=== PATIENT | female | born 1935 | race Caucasian/White ===

== ENCOUNTER 2017-10-27 10:32 | Emergency (ER) | payer MEDICARE ==
[2017-10-27 10:46] VITALS: BP 155/48
--- NOTE | 2017-11-07 18:05 | UC ---
Hong Sams Angela, scribed for Olivia Mcfarlane DO on 10/27/17 at 1113 . General HPI - HPI Summary HPI Summary: This pt is a 82 y/o female presenting to [facility] c/o plugged ears for a couple of days. She states having decreased hearing secondary to plugged ears. Pt notes her next door neighbor has come in to her house to tell her to lower the volume of her radio. She denies sore throat, cough, rhinorrhea, abd pain, nausea, vomiting, chest pain, SOB. Pt denies recent falls or confusion. PMHx: type [address] 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 Pt is a former smoker, quit at age 49. - History of Current Complaint Chief Complaint: UCEar Stated Complaint: PLUGGED EARS Time Seen by Provider: 10/27/17 10:52 Hx Obtained From: Patient Onset/Duration: Lasting Days, Still Present Timing: Constant Current Severity: Moderate Character: plugged ears, with decreased hearing Associated Signs & Symptoms: Positive: Other - POS: ears plugged, decreased hearing. Negative: Abdominal Pain, Confusion, Cough, Chest Pain, Fever, Headache, Nausea, SOB, Vomiting - Allergy/Home Medications Allergies/Adverse Reactions: Allergies Allergy/AdvReac Type Severity Reaction Status Date / Time Senna Allergy Intermediate Hives Verified 08/18/16 13:55 Sulfa Drugs AdvReac Intermediate Fatigue Verified 08/18/16 13:55 [elomite] Allergy Intermediate Hives Uncoded 07/29/16 12:49 PMH/Surg Hx/FS Hx/Imm Hx Endocrine History: Diabetes - type 2 Respiratory History: COPD Cancer History: Other Other Cancer History: Bone marrow CA - Surgical History Surgical History: Yes Surgery Procedure, Year, and Place: left foot years ago - Family History Known Family History: Positive: Cardiac Disease, Hypertension, Other - CA - Social History Alcohol Use: None Substance Use Type: None Smoking Status (MU): Former Smoker Type: Cigarettes Amount Used/How Often: 1 ppd Length of Time of Smoking/Using Tobacco: 30 years Have You Smoked in the Last Year: No When Did the Patient Quit Smoking/Using Tobacco: 30 years agao - Immunization History Most Recent Influenza Vaccination: 2013 Most Recent Tetanus Shot: UP TO DATE Most Recent Pneumonia Vaccination: 2012 Review of Systems Constitutional: Negative Skin: Negative Eyes: Negative ENT: Other - plugges ears, decreased hearing Respiratory: Negative Cardiovascular: Negative Gastrointestinal: Negative Genitourinary: Negative Motor: Negative Neurovascular: Negative Musculoskeletal: Negative Neurological: Negative Psychological: Negative All Other Systems Reviewed And Are Negative: Yes Physical Exam Triage Information Reviewed: Yes Appearance: Well-Appearing, No Pain Distress, Well-Nourished Vital Signs: Initial Vital Signs Temp 98 F 10/27/17 10:42 Pulse 49 10/27/17 10:42 Resp 16 10/27/17 10:42 BP 155/48 10/27/17 10:42 Pulse Ox 100 10/27/17 10:42 Vital Signs Reviewed: Yes Eyes: Positive: Conjunctiva Clear. Negative: Discharge ENT: Positive: Hearing grossly normal, Other - cerumen impaction in bilateral ears. Negative: Tonsillar swelling, Tonsillar exudate, Trismus, Muffled voice, Hoarse voice Neck exam: Normal Neck: Positive: Supple Respiratory: Positive: Lungs clear, Normal breath sounds, No respiratory distress, No accessory muscle use Cardiovascular: Positive: RRR, No Murmur Musculoskeletal Exam: Normal Neurological: Positive: Alert, Muscle Tone Normal Psychological Exam: Normal Psychological: Positive: Age Appropriate Behavior Skin Exam: Normal, Other - warm, dry Re-Evaluation - Re-Evaluation First Eval Re-Evaluation Time: 11:57 Comment: Pt is able to hear better after cerumen removal by ear irrigation. Course/Dx - Course Course Of Treatment: Medications reviewed this visit. In [facility] course the pt had ear irrigation. After cerumen removal, pt is able to hear better. Pt will be discharged home with follow up from PCP. - Differential Dx - Multi-Symptom Provider Diagnoses: Cerumen Impaction Discharge - Discharge Plan Condition: Stable Disposition: HOME Patient Education Materials: Cerumen Impaction (ED) Referrals: No Primary Care Phys,NOPCP [Primary Care Provider] - Additional Instructions: FOLLOW-UP CARE: You should establish with a private physician for follow-up care. If you are unable to get a timely appointment, or if you are worsening, call us or return for re-evaluation. An additional resource available to assist in finding the appropriate physician for your health care needs is the [facility]ician Referral Center. You may contact them by calling [phone]. The documentation as recorded by the Hong humphreys Angela accurately reflects the service I personally performed and the decisions made by me, Olivia Mcfarlane DO.
== END 2017-10-27 11:59 | disposition home or self-care (01) ==
LOC: UCEAST 10:32
DX: H61.23 Impacted cerumen, bilateral (principal); E11.9 Type 2 diabetes mellitus without complications; J44.9 Chronic obstructive pulmonary disease, unspecified; Z85.830 Personal history of malignant neoplasm of bone; Z88.2 Allergy status to sulfonamides; Z87.891 Personal history of nicotine dependence
CPT/HCPCS: 99213; G0463

== ENCOUNTER 2019-11-07 12:25 | Inpatient (IN) | payer MEDICARE ==
[2019-11-07] MEDS ORDERED: NS 0.9% 1000 ML** 1,000 ML IV ONE (12:47)
--- NOTE | 2019-11-07 13:20 | ED ---
Complex/Multi-Sys Presentation - HPI Summary HPI Summary: Patient is a 84 y/o F presenting to [facility] via EMS with complaints of fall and urinary and fecal incontinence. She is reported to have fallen some time last evening. Patient was found on floor of bathroom this morning by home health aide. Patient does not recall fall and unable to provide history, she is a level 5 caveat secondary to AMS. Patient is noted to have bruises to both shoulders. The patient does deny any pain. Home medications and allergies are reviewed. - History Of Current Complaint Chief Complaint: EDFall Time Seen by Provider: 11/07/19 12:40 Hx Obtained From: Patient Hx From Patient Unobtainable Due To: Altered Mental Status Onset/Duration: Sudden Onset, Still Present Timing: Intermittent, Lasting: - One episode, last night Severity Currently: Mild Severity Initially: Mild Associated Signs And Symptoms: Positive: Confusion, Other - Urinary and fecal incontinence - Allergies/Home Medications Allergies/Adverse Reactions: Allergies Allergy/AdvReac Type Severity Reaction Status Date / Time permethrin [From Elimite] Allergy Intermediate Hives Verified 11/07/19 16:18 senna Allergy Intermediate Hives Verified 12/11/18 09:55 Sulfa (Sulfonamide Allergy Intermediate Fatigue Verified 12/11/18 09:55 Antibiotics) Home Medications: Home Medications Acetaminophen TAB* [Tylenol TAB*] 650 mg PO Q4H PRN 11/07/19 [History Confirmed 11/07/19] Ascorbic Acid TAB* [Vitamin C TAB*] 500 mg PO DAILY 11/07/19 [History Confirmed 11/07/19] Cholecalciferol TAB* [Vitamin D TAB*] 2,000 units PO DAILY 11/07/19 [History Confirmed 11/07/19] Cyanocobalamin TAB* [Vitamin B12 TAB*] 1,000 mcg PO DAILY 11/07/19 [History Confirmed 11/07/19] Dulaglutide (NF) [Trulicity (NF)] 0.75 mg SUBCUT WEEKLY 11/07/19 [History Confirmed 11/07/19] Multivitamins/Minerals TAB* [Theragran/minerals TAB*] 1 tab PO DAILY 11/07/19 [ History Confirmed 11/07/19] Ruxolitinib (NF) [Jakafi (NF)] 10 mg PO BID 11/07/19 [History Confirmed 11/07/19 ] PMH/Surg Hx/FS Hx/Imm Hx Endocrine/Hematology History: Reports: Hx Blood Disorders - BONE MARROW CANCER, Hx Blood Transfusions, Hx Diabetes, Hx Anemia Denies: Hx Bone Marrow Disease, Hx Systemic Lupus Erythematosus, Hx Sickle Cell Disease, Hx Thyroid Disease, Hx Unexplained Bleeding, Other Endocrine/ Hematological Disorders Cardiovascular History: Denies: Hx Hypotension, Hx Hypertension, Hx Pacemaker/ICD, Hx Peripheral Vascular Disease, Hx Rheumatic Fever, Hx Syncope Respiratory History: Reports: Hx Chronic Obstructive Pulmonary Disease (COPD) - NOT DIAGNOSED, SMOKED FOR 30Y4S Denies: Hx Asthma, Hx Chronic Bronchitis, Hx Cystic Fibrosis, Hx Lung Cancer , Hx Pleural Effusion, Hx Pneumonia, Hx Pulmonary Edema, Hx Pulmonary Embolism, Hx Seasonal Allergies, Hx Sleep Apnea GI History: Denies: Hx Cirrhosis, Hx Crohn's Disease, Hx Diverticulosis, Hx Gall Bladder Disease, Hx Gastroesophageal Reflux Disease, Hx Gastrointestinal Bleed, Hx Hiatal Hernia, Hx Irritable Bowel, Hx Jaundice, Hx Obstructive Bowel, Hx Ileostomy, Hx Pyloric Stenosis, Hx Ulcer, Other GI Disorders History: Denies: Hx Acute Renal Failure, Hx Benign Prostatic Hyperplasia, Hx Chronic Renal Failure, Hx Dialysis, Hx Kidney Infection, Hx Kidney Stones, Other Problems/Disorders Musculoskeletal History: Reports: Hx Arthritis Denies: Hx Bursitis, Hx Congenital Bone Abnormalities, Hx Fibromyalgia, Hx Gout, Hx Orthopedic Injury, Hx Osteoporosis, Hx Scoliosis, Hx Tendonitis, Other Musculoskeletal History Sensory History: Reports: Hx Contacts or Glasses - READING Denies: Hx Eye Prosthesis, Hx Glaucoma, Hx Legally Blind, Hx Macular Degeneration, Hx Vision Problem, Hx Deafness, Hx Hearing Aid, Hx Hearing Problem , Other Sensory Impairments Opthamlomology History: Reports: Hx Contacts or Glasses - READING Denies: Hx Eye Prosthesis, Hx Glaucoma, Hx Legally Blind, Hx Macular Degeneration, Hx Vision Problem, Other Sensory Impairments Neurological History: Denies: Hx Dementia, Hx Developmental Delay, Hx Headaches, Hx Migraine, Hx Nerve Disease, Hx Seizures, Hx Spinal Cord Injury, Hx Transient Ischemic Attacks (TIA), Other Neuro Impairments/Disorders Psychiatric History: Reports: Hx Anxiety - SOMETIMES ANXIOUS, NOT DIAGNOSED Denies: Hx Attention Deficit Hyperactivity Disorder, Hx Eating Disorder, Hx Depression, Hx Panic Disorder, Hx Post Traumatic Stress Disorder, Hx Inpatient Treatment, Hx Community Mental Health Tx, Hx Schizophrenia, Hx Bipolar Disorder , Hx Suicide Attempt, Hx of Violent Episodes Against Others, Hx Substance Abuse , Other Psychiatric Issues/Disorders - Cancer History Cancer Type, Location and Year: BONE MARROW CA Hx Hematologic Symptoms: Yes - thrombocytosis, sees Dr. Felix, takes Anagrelide - Surgical History Surgery Procedure, Year, and Place: left foot years ago Hx Anesthesia Reactions: No Infectious Disease History: No Infectious Disease History: Denies: Hx Clostridium Difficile, Hx Hepatitis, Hx Human Immunodeficiency Virus (HIV), Hx of Known/Suspected MRSA, Hx Shingles, Hx Tuberculosis, Hx Known/ Suspected VRE, Hx Known/Suspected VRSA, History Other Infectious Disease, Traveled Outside the [place] in Last 30 Days - Family History Known Family History: Positive: Cardiac Disease, Hypertension, Other - CA - Social History Alcohol Use: None Substance Use Type: Reports: None Smoking Status (MU): Former Smoker Type: Cigarettes Amount Used/How Often: 1 ppd Length of Time of Smoking/Using Tobacco: 30 years Have You Smoked in the Last Year: No Review of Systems - ROS Summary Review of Systems Summary: THIS IS A LEVEL 5 CAVEAT DUE TO AMS Positive: incontinence - fecal and void All Other Systems Reviewed And Are Negative: No Physical Exam - Summary Physical Exam Summary: THIS IS A LEVEL 5 CAVEAT VITAL SIGNS: Reviewed. GENERAL: Patient is a well-developed and nourished female who is lying comfortable in the stretcher. Patient is not in any acute respiratory distress. HEAD AND FACE: No signs of trauma. No ecchymosis, hematomas or skull depressions. No sinus tenderness. EYES: PERRLA, EOMI x 2, No injected conjunctiva, no nystagmus. EARS: Hearing grossly intact. Ear canals and tympanic membranes are within normal limits. MOUTH: Oropharynx within normal limits. NECK: Supple, trachea is midline, no adenopathy, no JVD, no carotid bruit, no c- spine tenderness, neck with full ROM. CHEST: Symmetric, no tenderness at palpation. LUNGS: Clear to auscultation bilaterally. No wheezing or crackles. CVS: Regular rate and rhythm, S1 and S2 present, no murmurs or gallops appreciated. ABDOMEN: Soft, non-tender. No signs of distention. No rebound, no guarding, and no masses palpated. Bowel sounds are normal. Incontinence of feces and urine. EXTREMITIES: FROM in all major joints, no edema, no cyanosis or clubbing. Ecchymosis to shoulders bilaterally. NEURO: Alert. Disoriented. No acute neurological deficits. Speech is normal and follows commands. SKIN: Dry and warm. Triage Information Reviewed: Yes Vital Signs On Initial Exam: Initial Vitals Temp Pulse Resp BP Pulse Ox 99 F 99 21 153/52 95 11/07/19 12:29 11/07/19 12:29 11/07/19 12:29 11/07/19 12:29 11/07/19 12:29 Vital Signs Reviewed: Yes Completion Of Physical Exam Limited Due To: Level 5 Procedures - Sedation Patient Received Moderate/Deep Sedation with Procedure: No Diagnostics - Vital Signs Vital Signs Temp Pulse Resp BP Pulse Ox 11/07/19 12:40 96 20 98 11/07/19 12:39 98 20 153/52 99 11/07/19 12:29 99 F 99 21 153/52 95 - Laboratory Result Diagrams: 11/08/19 09:06 11/08/19 09:06 Lab Statement: Any lab studies that have been ordered have been reviewed, and results considered in the medical decision making process. - Radiology CXR Radiology Interpretation Completed By: Radiologist Summary of Radiographic Findings: CXR IMPRESSION: HYPERINFLATION. NO ACTIVE CARDIOPULMONARY DISEASE. An ED physician has reviewed this report. - CT Brain CT CT Interpretation Completed By: Radiologist Summary of CT Findings: IMPRESSION: 1. No acute intracranial abnormality by CT. 2. Mild chronic small vessel ischemic disease is likely. 3. Moderate cerebral volume loss. An ED physician has reviewed this report. - EKG 1351 Cardiac Rate: NL - 92 bpm EKG Rhythm: Sinus Rhythm ST Segment: Normal EKG Comparison: No Significant Change Summary of EKG Findings: EKG at 1351 shows normal sinus rhythm at 92 bpm. No STEMI. Normal axis. No change since 11/04/14. Dr. Alexander reviewed and interpreted this EKG. Complex Multi-Symp Course/Dx Assessment/Plan: Patient is an 84 y/o F presenting to [facility] via EMS with complaints of fall and urinary and fecal incontinence. She is reported to have fallen some time last evening. Patient was found on the floor of the bathroom this morning by home health aide. Patient does not recall fall and unable to provide history, she is a level 5 caveat secondary to AMS. Patient is noted to have bruises to both shoulders. The patient denied any pain. Home medications and allergies are reviewed. PE: bruising to shoulders, bilaterally; alert but disoriented, incontinent of feces and urine, level 5 caveat secondary to AMS. In the ED course the patient was placed in a pvc monitor, IV access was obtained, IV fluids started. Head CT impression: No acute interconnected abnormality. Mild chronic small vessel ischemic disease. Moderate cerebral volume loss. Blood work shows wbcs of 40.9 which is Baseline, hemoglobin 9, hematocrit 28 and crit is 178. Urinalysis positive for UTI. Other results were within normal limits except for glucose of 177 and troponin 0.20. Patient was given Rocephin for the UTI. Chest x-ray impression: Hyperinflation no active cardiopulmonary disease. I discussed the case with and Dr. Prince from the hospitalist services who accepted the patient for admission. The patient is hemodynamically stable. - Diagnoses Provider Diagnoses: UTI (urinary tract infection), Acute alteration in mental status - Physician Notifications Discussed Care Of Patient With: Tosin Prince - Hospitalist Time Discussed With Above Provider: 15:00 Instructed by Provider To: Admit As Inpatient - Spoke to Dr. Prince at 1500. She accepts patient for admission. Admit/Transition Orders Completed By ED Provider: Yes Discharge ED - Sign-Out/Discharge Documenting (check all that apply): Patient Departure - admit All imaging exams completed and their final reports reviewed: Yes - Discharge Plan Condition: Stable Disposition: ADMITTED TO [facility] - Billing Disposition and Condition Condition: STABLE Disposition: Admitted to [facility] - Attestation Statements Document Initiated by Jaimeibe: Yes Documenting Scribe: MILANA STROUD Provider For Whom Joaquin is Documenting (Include Credential): MISHA ALEXANDER MD Scribe Attestation: Latrell, MILANA STROUD, scribed for MISHA ALEXANDER MD on at 1047. Scribe Documentation Reviewed: Yes Provider Attestation: The documentation as recorded by the scribe, MILANA STROUD accurately reflects the service I personally performed and the decisions made by me, MISHA ALEXANDER MD Status of Scribe Document: Viewed
[2019-11-07 13:24] LABS: Urine Appearance Cloudy; Urine Bilirubin Negative (Negative); Urine Blood 2+ (Negative); Urine Color Amber; Urine Glucose Negative (Negative); Urine Ketones Trace (Negative); Urine Nitrite Positive (Negative); Urine Protein 2+(100 mg/dL) (Negative); Urine Specific Gravity 1.017 (1.010-1.030); Urine Urobilinogen Negative (Negative)
[2019-11-07] MEDS ORDERED: cefTRIAXone(*) 1 GM in NS 0.9% 50 ML* 50 ML IVPB ONE (13:28)
[2019-11-07 13:35] LABS: Urine Bacteria 2+ (Absent); Urine Red Blood Cell 3+(>10/hpf) (Absent); Urine Squamous Epithelial Cell Present (Absent); Urine White Blood Cell 3+(>20/hpf) (Absent)
[2019-11-07 13:43] LABS: INR 1.16 (0.82-1.09)
[2019-11-07 13:45] LABS: Hematocrit 28 % (35-47); Mean Corpuscular HGB Conc 32 g/dL (31-36); Mean Corpuscular Hemoglobin 31 pg (27-31); Mean Corpuscular Volume 96 fL (80-97); Mean Platelet Volume 7.9 fL (7.4-10.4); Platelet Count 178 10^3/uL (150-450); Red Blood Count 2.91 10^6 /uL (3.70-4.87); Red Cell Distribution Width 25 % (10-15); White Blood Count 40.9 10^3/uL (3.5-10.8)
[2019-11-07 14:22] LABS: ALT 16 U/L (7-52); AST 27 U/L (13-39); Albumin 3.8 g/dL (3.2-5.2); Albumin/Globulin Ratio 1.4 (1-3); Alkaline Phosphatase 92 U/L (34-104); Anion Gap 7 mmol/L (2-11); BUN/Creatinine Ratio 20.5 (8-20); Blood Urea Nitrogen 15 mg/dL (6-24); CO2 Carbon Dioxide 28 mmol/L (22-32); Calcium 8.6 mg/dL (8.6-10.3); Chloride 103 mmol/L (101-111); Creatine Kinase 118 U/L (10-223); EGFR African American 91.7 (>60); EGFR Non-African American 75.8 (>60); Globulin 2.7 g/dL (2-4); Glucose 177 mg/dL (70-100); Magnesium 1.9 mg/dL (1.9-2.7); Potassium 3.6 mmol/L (3.5-5.0); Sodium 138 mmol/L (135-145); Total Protein 6.5 g/dL (6.4-8.9)
[2019-11-07 14:35] LABS: Microcytosis 2+; Polychromasia 1+
[2019-11-07 14:37] LABS: ABS Basophils 0.2 10^3/ul (0-0.2); ABS Eosinophils 1.3 10^3/ul (0-0.6); ABS Lymphocytes 3.7 10^3/ul (1.0-4.8); ABS Monocytes 1.6 10^3/ul (0-0.8); ABS Neutrophils 33.9 10^3/ul (1.5-7.7); ABS Nucleated RBC 1.2 10^3/ul; Eosinophil % 3.3 %; Lymphocyte % 9.1 %
[2019-11-07 14:39] LABS: TSH (Thyroid Stimulating Horm) 1.77 mcIU/mL (0.34-5.60)
[2019-11-07] MEDS ORDERED: Aspirin 81 mg CHEW TAB* 81 MG TAB.CHEW PO ONE (14:39)
[2019-11-07 14:51] LABS: Acetaminophen < 15 mcg/mL; Alcohol < 10 mg/dL (<10); Salicylate < 2.50 mg/dL (<30)
[2019-11-07] MEDS ORDERED: Dextrose 50% VIAL 50 ml IV PUSH PRN (16:33)
[2019-11-07] MEDS ORDERED: Dulaglutide (NF) 0.75 MG/0.5 ML SYRINGE SUBCUT SCH (17:00)
[2019-11-07] MEDS: NS 0.9% 1000 ML** 1,000 ML IV SCH (18:39)
--- NOTE | 2019-11-07 19:27 | HP ---
CC: Dr. Felix; Dr. Sal * HISTORY AND PHYSICAL: DATE OF ADMISSION: 11/07/19 PRIMARY CARE PROVIDER: Dr. Felix OTHER PROVIDER: Dr. Sal. ATTENDING PHYSICIAN: Tosin Prince MD * (dictated by GEO Castillo ). CHIEF COMPLAINT: 1. Fall. 2. Fecal and urinary incontinence. HISTORY OF PRESENT ILLNESS: Ms. Mao is an 84-year-old female with a past medical history of myelofibrosis, diabetes, COPD, who presented to the ER today via ambulance after being found down at [facility]. Her aide, Kristin, notes that she found the patient down on the floor in her bathroom and she had noted incontinence of feces and most likely incontinence of urine. The patient has no recollection of this. The fall was unwitnessed. The patient is unsure if she hit her head or lost consciousness. She does not recall the fall and therefore is unable to say whether it was mechanical or not. It is important to note that the patient was recently diagnosed with a UTI, treated with approximately 1 month of cephalexin 500 mg t.i.d. Antibiotics have been completed for approximately 1 week. She follows with Dr. Sal, who called in a new antibiotic of Macrobid for the patient as well as Premarin vaginal cream. The patient has not picked these up yet, but had planned to today. The patient complains of low back pain, but denies flank pain, dysuria, urgency, retention, or frequency. In fact, she states that she has had decreased output. She does complain of occasional dizziness and noted that she had diarrhea this morning. In the ER, the patient received a full workup including laboratory data revealing a leukocytosis, anemia. She had a troponin of 0.20. Creatine kinase was negative as was TSH. There is no lactic acidosis. A urinalysis was performed and revealed 3+ LE, positive nitrites, 2+ bacteria. Brain CT showed no acute abnormalities. Chest x-ray, no active cardiopulmonary disease. EKG shows T-wave inversion in V1 without ST elevation or depression. In the ER, the patient was given aspirin 81 mg, ceftriaxone 1 g, 1 L of normal saline. The hospitalist team was asked to evaluate the patient for admission. PAST MEDICAL HISTORY: 1. Myelofibrosis, on ruxolitinib, follows with Dr. Felix. 2. Diabetes mellitus. 3. COPD. 4. Arthritis. PAST SURGICAL HISTORY: Left foot; bilateral cataracts. HOME MEDICATIONS: 1. Acetaminophen 650 mg p.o. q.4 hours p.r.n. 2. Cyanocobalamin 1000 mcg p.o. daily. 3. Ascorbic acid 500 mg p.o. daily. 4. Ruxolitinib 10 mg p.o. b.i.d. 5. Dulaglutide 0.75 mg subcu weekly. 6. Multivitamin/minerals 1 tab p.o. daily. 7. Cholecalciferol 2000 units p.o. daily. DRUG ALLERGIES: SENNA, SULFA, ELIMITE. FAMILY HISTORY: Mother during childbirth. Father in his 80s, unsure cause of . The patient is unable to recall any further family history. SOCIAL HISTORY: The patient is a former smoker. She quit 30 years ago. Prior to that, she smoked for 30 pack years. She does not use alcohol. She is retired from nursing. She lives at [facility]. She is not . She does not have any children. She lives at home alone with her cat. She has declined to appoint a surrogate decision maker at this time. REVIEW OF SYSTEMS: A 14-point review of systems has been performed and all the pertinent positives and negatives are in the HPI. All other systems are negative. PHYSICAL EXAMINATION GENERAL: Ms. Mao is a well-developed, well-nourished, mildly disheveled, average weight elderly white woman who is sitting up in bed. She is pleasant, cooperative, and mildly confused. She appears to be in no acute distress. HEENT: Normocephalic, atraumatic. PERRL. EOMI. Nonicteric sclerae. Hearing is grossly intact. Oral mucous membranes are moist. There are no lesions. Poor dentition. Pharynx is clear. Tongue is at midline. Palate elevates symmetrically. PULMONARY: Symmetrical chest expansion without use of accessory muscles. Clear to auscultation bilaterally without rhonchi, wheeze, or rales. CARDIOVASCULAR: Mildly tachycardic. Regular rhythm. S1, S2 present without murmurs, rubs, clicks, or gallops. There is no JVD. There is no peripheral edema. ABDOMEN: Flat. Bowel sounds in all quadrants. Soft, mildly tender to palpation at the suprapubic area. No CVA tenderness. MUSCULOSKELETAL: Painless ROM. NEURO: The patient is awake. She is alert and oriented to person and place, unsure of date. Cranial nerves II through XII are grossly intact. Motor strength 5/5 bilaterally in upper and lower extremities. Broadband Installer strength is equal. DIAGNOSTIC STUDIES/LAB DATA: WBC 40.9, hemoglobin 9, hematocrit 28, RDW 25. Lactic 1.4. Creatine kinase 118, troponin 0.20. TSH 1.77. Urinalysis; 3+ LE, 2+ bacteria, positive nitrites. Brain CT, impression: No acute intracranial abnormality by CT. Mild chronic small vessel ischemic disease is likely. Moderate cerebral volume loss. Chest x-ray, impression: Hyperinflation. No active cardiopulmonary disease. ASSESSMENT AND PLAN: Ms. Mao is an 84-year-old female with a past medical history of myelofibrosis, chronic obstructive pulmonary disease, diabetes, who presented to the ER today after a fall and was found to meet sepsis criteria with probable urinary tract infection. The patient will be admitted for: 1. Sepsis. The patient has leukocytosis (although this appears chronic), tachycardia, tachypnea. Lactic acid is within normal limits. Suspected source is urinary. She has been treated with cephalexin x1 month and has been off this medication for 1 week. She follows with Dr. Sal. We will get a records request. It looks like she was prescribed Macrobid, which she had planned on starting soon, but has yet to pick it up from the pharmacy. She has received 1 dose of ceftriaxone. She will be continued on ceftriaxone. She does have a history of urine culture positive for Escherichia coli this month and it was susceptible to ceftriaxone. We will await urine cultures. Blood culture was not done due to ceftriaxone being administered prior to obtaining blood cultures. 2. Fall. The patient sustained a fall, which she does not remember. She is unsure if she lost consciousness, hit her head, or sustained any other injuries. Brain CT was negative. The patient complains of back pain. We will check lumbar x- ray. Creatine kinase was obtained and is within normal limits. It is likely that her fall was due to altered mental status likely from urinary tract infection. PT and OT have been ordered. 3. Elevated troponin. The patient has troponin of 0.20. EKG shows T-wave inversion in V1 without ST elevation or depression. I suspect that the patient' s elevated troponin is related to demand ischemia. She denies chest pain. We will continue to trend troponins and monitor for further intervention. 4. Myelofibrosis. Continue home medication, ruxolitinib. 5. Diabetes mellitus. The patient has been placed on fingersticks a.c. and lispro sliding scale. Her dulaglutide has been held. 6. Chronic obstructive pulmonary disease. The patient has a reported history of chronic obstructive pulmonary disease, but has not been formally diagnosed. She is currently not on any home inhalers. She does not appear to be in an exacerbation at this time. 7. DVT prophylaxis. According to DVT Risk Assessment, the patient scores 3, placing her at high risk. She has been started on enoxaparin. 8. Code status. DNR. TIME SPENT: Approximately 60 minutes was spent on this admission, greater than half that time was spent [id number] with the patient obtaining history, performing physical, and reviewing the plan of care. The case has been reviewed with my attending, Dr. Prince, who is in agreement with the plan of care. GEO CASTILLO [id number]/[facility] #: [id number]
[2019-11-07 20:08] LABS: Troponin I 0.19 ng/mL (<0.03)
[2019-11-07] MEDS: RUXOLITINIB 10 MG PO SCH (22:56)
[2019-11-07] MEDS: Enoxaparin(*) 40 MG/0.4 ML SYR SUBCUT SCH (22:57)
[2019-11-08] MEDS: Insulin LISPRO* 1 UNITS UNIT SUBCUT SCH ×3 (08:41→16:43)
[2019-11-08] MEDS: Cyanocobalamin TAB* 500 MCG PO SCH (08:41)
[2019-11-08] MEDS: Multivitamins/Minerals TAB PO SCH (08:41)
[2019-11-08] MEDS: Ascorbic Acid TAB* 500 MG PO SCH (08:41)
[2019-11-08] MEDS: Cholecalciferol TAB* 1000 UNITS PO SCH (08:41)
[2019-11-08] MEDS: RUXOLITINIB 10 MG PO SCH ×2 (08:42→21:37)
[2019-11-08] MEDS: NS 0.9% 1000 ML** 1,000 ML IV SCH (08:47)
--- NOTE | 2019-11-08 09:10 | PN ---
Subjective Date of Service: 11/08/19 Interval History: Ms. Mao is feeling fine this morning. She is not sure why she is in the hospital and does not remember any events from yesterday. She does remember taking antibiotics recently for a UTI. Denies CP, SOB, N/V. Nursing reports HTN, hypoxia. Family History: Unchanged from Admission Social History: Unchanged from Admission Past Medical History: Unchanged from Admission Objective Active Medications: Acetaminophen (Tylenol Tab*) 650 mg PO Q4H PRN mild to moderate pain Ascorbic Acid (Vitamin C Tab*) 500 mg PO DAILY [facility] Cholecalciferol (Vitamin D Tab*) 2,000 units PO DAILY [facility] Cyanocobalamin (Vitamin B12 Tab*) 1,000 mcg PO DAILY [facility] Dextrose (Dextrose 50% Vial 50 Ml*) 25 ml IV PUSH .FOR FS < 60 - SS PRN FS < 60 Enoxaparin Sodium (Lovenox(*)) 40 mg SUBCUT Q24H [facility] Sodium Chloride (Ns 0.9% 1000 Ml) 1,000 mls @ 100 mls/hr IV PER RATE [facility] Ceftriaxone Sodium 1 gm/ (Sodium Chloride) 50 mls @ 100 mls/hr IVPB Q24H [facility] Insulin Human Lispro (Humalog*) 0 units SUBCUT AC [facility]; Protocol Multivitamins/Minerals (Theragran/Minerals Tab*) 1 tab PO DAILY [facility] Ruxolitinib (Jakafi (Nf)) 10 mg PO BID [facility] Vital Signs - 8 hr 11/08/19 11/08/19 03:16 07:15 Temperature 97.4 F 99.4 F Pulse Rate 108 118 Respiratory 24 22 Rate Blood Pressure 146/54 185/61 (mmHg) O2 Sat by Pulse 79 90 Oximetry Oxygen Devices in Use Now: None Appearance: Elderly female sitting in bed in NAD Ears/Nose/Mouth/Throat: Mucous Membranes Moist Neck: NL Appearance and Movements; NL JVP, Trachea Midline Respiratory: Symmetrical Chest Expansion and Respiratory Effort, Clear to Auscultation Cardiovascular: NL Sounds; No Murmurs; No JVD, RRR Abdominal: NL Sounds; No Tenderness; No Distention Extremities: No Edema Neurological: - - Alert, oriented to self and place Lines/Tubes/Other Access: Clean, Dry and Intact Peripheral IV Nutrition: Taking PO's Result Diagrams: 11/07/19 13:21 12/11/19 13:21 Assess/Plan/Problems-Billing Assessment: Ms. Mao is an 84 yo F with PMH of COPD, myelofibrosis, DM2, recurrent UTI; who presented to the ED after being found on the ground and was found to be meeting sepsis criteria, likely secondary to UTI. - Patient Problems (1) UTI (urinary tract infection) Comment: - History of recurrent UTI (4 this year in our system), all pansensitive E. coli - Completed 1 month of cephalexin 1 week ago - Follows with Dr. Sal - Urine culture from 11/02/19 growing E. coli - Pending urine culture from admission - Continue ceftriaxone (2) Sepsis Comment: - Met criteria on admission with tachycardia, tachypnea; source is suspected to be UTI - Leukocytosis is chronic - Blood cultures pending - Plan as above (3) Fall Comment: - Found down on the floor at home - Unknown cause, but low suspicion for syncope - Check echo - PT/OT, may need ARETHA (4) Elevated troponin Code(s): R79.89 - OTHER SPECIFIED ABNORMAL FINDINGS OF BLOOD CHEMISTRY Comment : - No CP or anginal equivalent - EKG on admission showing T wave inversion in V1, but no other ST changes - Suspect demand ischemia - Recheck trop this morning (5) Myelofibrosis Code(s): D75.81 - MYELOFIBROSIS Comment: - With chronic leukocytosis - Follows with Dr. Felix - Continue ruxolitinab (6) Diabetes mellitus, type 2 Comment: - A1c pending - Continue Lispro SS (7) COPD (chronic obstructive pulmonary disease) Code(s): J44.9 - CHRONIC OBSTRUCTIVE PULMONARY DISEASE, UNSPECIFIED Comment: - Not in exacerbation - No formal diagnosis, but CXR does show hyperinflation - No on home medication (8) DVT prophylaxis Comment: - Lovenox (9) DNR (do not resuscitate) Comment: Status and Disposition: Inpatient. Anticipate d/c home vs ARETHA when medically stable, likely 1-2 more days. Attending: Lidia Garcia
[2019-11-08 09:34] LABS: Hematocrit 29 % (35-47); Hemoglobin 9.3 g/dL (12.0-16.0); Mean Corpuscular HGB Conc 32 g/dL (31-36); Mean Corpuscular Hemoglobin 31 pg (27-31); Mean Corpuscular Volume 96 fL (80-97); Mean Platelet Volume 8.6 fL (7.4-10.4); Platelet Count 205 10^3/uL (150-450); Red Blood Count 3.03 10^6 /uL (3.70-4.87); Red Cell Distribution Width 26 % (10-15); White Blood Count 52.7 10^3/uL (3.5-10.8)
[2019-11-08 09:39] LABS: Anion Gap 11 mmol/L (2-11); BUN/Creatinine Ratio 24.6 (8-20); Blood Urea Nitrogen 15 mg/dL (6-24); CO2 Carbon Dioxide 22 mmol/L (22-32); Calcium 8.8 mg/dL (8.6-10.3); Chloride 104 mmol/L (101-111); EGFR African American 112.8 (>60); EGFR Non-African American 93.2 (>60); Glucose 217 mg/dL (70-100); Potassium 3.6 mmol/L (3.5-5.0); Sodium 137 mmol/L (135-145)
[2019-11-08 09:49] LABS: Troponin I 0.56 ng/mL (<0.03)
--- NOTE | 2019-11-08 09:57 | PN ---
Progress Note - Progress Note Date of Service: 11/08/19 SOAP: Subjective: [She is feeling ok today, she is less responsive and conversational then usual. Does not remember being sick at home. Denies pain. Followed primary care through [place]. 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 Has been stable on therapy with persistent anemia and leukocytosis, low level of peripheral blasts. She has also had progressive dementia over past 2 years. Acetaminophen (Tylenol Tab*) 650 mg PO Q4H PRN PRN Reason: mild to moderate pain Ascorbic Acid (Vitamin C Tab*) 500 mg PO DAILY [facility] Last Admin: 11/08/19 08:41 Dose: 500 mg Aspirin (Aspirin 81 Mg Chew Tab*) 81 mg PO DAILY [facility] Cholecalciferol (Vitamin D Tab*) 2,000 units PO DAILY [facility] Last Admin: 11/08/19 08:41 Dose: 2,000 units Cyanocobalamin (Vitamin B12 Tab*) 1,000 mcg PO DAILY [facility] Last Admin: 11/08/19 08:41 Dose: 1,000 mcg Dextrose (Dextrose 50% Vial 50 Ml*) 25 ml IV PUSH .FOR FS < 60 - SS PRN PRN Reason: FS < 60 Enoxaparin Sodium (Lovenox(*)) 40 mg SUBCUT Q24H [facility] Last Admin: 11/07/19 22:57 Dose: 40 mg Sodium Chloride (Ns 0.9% 1000 Ml) 1,000 mls @ 100 mls/hr IV PER RATE [facility] Stop: 11/09/19 02:14 Last Admin: 11/08/19 08:47 Dose: 100 mls/hr Ceftriaxone Sodium 1 gm/ (Sodium Chloride) 50 mls @ 100 mls/hr IVPB Q24H [facility] Insulin Human Lispro (Humalog*) 0 units SUBCUT AC [facility]; Protocol Last Admin: 11/08/19 08:41 Dose: 2 unit Multivitamins/Minerals (Theragran/Minerals Tab*) 1 tab PO DAILY [facility] Last Admin: 11/08/19 08:41 Dose: 1 tab Ruxolitinib (Jakafi (Nf)) 10 mg PO BID [facility] Last Admin: 11/08/19 08:42 Dose: Not Given Objective: [] Vital Signs Temp Pulse Resp BP Pulse Ox 99.4 F 118 22 185/61 90 11/08/19 07:15 11/08/19 07:15 11/08/19 08:00 11/08/19 07:15 11/08/19 07:15 HEENT: OM moist, pale, no thrush dec BS, CTA RRR S1S2 Abd + spleen, NT ND Ext No C/C/E Assessment: []84 year old female with long standing ET, Rx Ruxolitinib and has bee stable. Blood counts on admission c/w baseline. Admission with UTI and decompensation of long standing dementia. Plan: []1. Continue Ruxolitinib - transfuse Hgb < 8.0 2. Rx UTI, she has mild immunocompromise. 3. Dementia decompensation second to sepsis. 3. May need placement, increased support from current assisted living.
[2019-11-08 10:00] LABS: Polychromasia 1+
[2019-11-08 10:02] LABS: ABS Basophils 0.2 10^3/ul (0-0.2); ABS Lymphocytes 3.6 10^3/ul (1.0-4.8); ABS Monocytes 2.7 10^3/ul (0-0.8); ABS Neutrophils 45.1 10^3/ul (1.5-7.7); ABS Nucleated RBC 1.1 10^3/ul; Eosinophil % 1.9 %; Lymphocyte % 6.8 %
[2019-11-08] MEDS: Aspirin 81 mg CHEW TAB* 81 MG TAB.CHEW PO SCH (10:32)
[2019-11-08] MEDS: cefTRIAXone(*) 1 GM in NS 0.9% 50 ML* 50 ML IVPB SCH (13:44)
[2019-11-08 13:49] LABS: Troponin I 0.64 ng/mL (<0.03)
--- NOTE | 2019-11-08 13:53 | ECHO ---
*[facility]* [place] [address] Fax #: [phone] Transthoracic Echocardiogram Patient: Alejandra Mao : 1935 Study Date: 11/08/2019 Age: 84 Gender: F HR: 104 bpm Height: 66 in /167.6 cm BSA: 1.77 m^2 Weight: 146.7 lb /66.7 kg BMI: 23.7 kg/m^2 *Outcome Analyst: * Breana Louie [facility] *Referring Physician: * Mis Millard *Reading Physician: * William Gamboa MD Indications: Syncope. History: Essential thrombocytosis. Chronic obstructive pulmonary disease. Risk factors: Former tobacco use. Diabetes mellitus. Conclusions Summary: - Left ventricle: The cavity size is normal. Wall thickness is normal. Systolic function is vigorous. The estimated ejection fraction is 65-70%. Doppler parameters are consistent with abnormal left ventricular relaxation (grade 1 diastolic dysfunction). - Left atrium: The atrium is mildly dilated. - Mitral valve: The findings are consistent with mild stenosis. There is trace to mild regurgitation. The peak E-wave velocity is 1.53 m/sec. The mean diastolic gradient is 4.5 mm Hg. The valve area is 2.8 cm^2. The valve area by pressure half-time is 2.0 cm^2. - No previous echocardiogram available. Study data: Transthoracic echocardiogram. Procedure: Transthoracic echocardiography was performed. Image quality was fair. The study was technically limited due to restricted patient mobility. Complete 2D, spectral Doppler, and color flow Doppler. Location: Bedside. Patient status: Inpatient. Patient room number: 401. Rhythm: Tachycardia. Findings Left ventricle: The cavity size is normal. Wall thickness is normal. Systolic function is vigorous. The estimated ejection fraction is 65-70%. Wall motion is normal; there are no regional wall motion abnormalities. Doppler parameters are consistent with abnormal left ventricular relaxation (grade 1 diastolic dysfunction). Right ventricle: The cavity size is mildly dilated. Systolic function is low normal. Left atrium: The atrium is mildly dilated. Right atrium: The atrium is at the upper limits of normal in size. Mitral valve: The Mitral valve annulus appears mildly calcified. The leaflets are mildly thickened. Moderately calcified posterior annulus. The findings are consistent with mild stenosis. There is trace to mild regurgitation. Aortic valve: The valve is trileaflet. The leaflets are mildly thickened. There is no evidence of stenosis. There is no significant regurgitation. Tricuspid valve: The leaflets are normal thickness. There is no evidence of stenosis. There is trace regurgitation. Pulmonic valve: The leaflets are normal thickness. There is no evidence of stenosis. There is trace regurgitation. Aorta: Aortic root: The aortic root is appears normal. Ascending aorta: The ascending aorta is appears normal. Aortic arch: The aortic arch is appears normal. Pericardium: There is no significant pericardial effusion. There is a left pleural effusion. Pulmonary arteries: The main pulmonary artery is normal-sized. Systolic pressure can not be accurately estimated. Systemic veins: Inferior vena cava: The vessel is normal in size. There is (>= 50%) respiratory change in the IVC dimension. Measurements Left ventricle Value Ref Aortic valve continued Value Ref MINOR, LAX 3.9 cm 3.8 - Peak v, S 1.7 m/sec ---- 5.2 VTI, S 35.0 cm ---- ESD, LAX 2.9 cm 2.2 - Mean grad, S 6.3 mm Hg ---- 3.5 Peak grad, S 12.0 mm Hg ---- FS, LAX (L) 25 % 27 - 45 LVOT/AV, VTI ratio 0.74 ---- PW, ED, LAX 0.9 cm 0.6 - AREN, VTI 2.35 cm^2 ---- 0.9 AREN, Vmax 2.35 cm^2 ---- FS (L) 25 % 27 - 45 PW, ED 0.9 cm 0.6 - Mitral valve Value Ref 0.9 Peak E 1.53 m/sec ---- Peak A 1.82 m/sec ---- LVOT Value Ref VTI leaflet coapt 31.0 cm ---- Diam, S 2.01 cm -------- Decel time 175 ms ---- Area 3.2 cm^2 -------- PHT 108 ms ---- Peak yesica, S 1.26 m/sec -------- Mean grad, D 4.5 mm Hg ---- VTI, S 26.1 cm -------- Peak grad, D 10.3 mm Hg ---- Peak grad, S 6 mm Hg -------- Peak E/A ratio 0.84 ---- Mean grad, S 4 mm Hg -------- MVA 2.8 cm^2 ---- MVA, PHT 2.0 cm^2 ---- Ventricular septum Value Ref IVS, ED 0.9 cm 0.6 - Pulmonic valve Value Ref 0.9 Peak v, S 1.17 m/sec ---- Peak grad, S 5.5 mm Hg ---- Right ventricle Value Ref MINOR, LAX 2.9 cm -------- Aortic root Value Ref MINOR minor ax, A4C (H) 3.8 cm 1.9 - Root diam 2.7 cm <4.0 mid 3.5 Ascending aorta Value Ref Left atrium Value Ref AAo AP diam, S 2.7 cm ---- LA ID 3.7 cm -------- ML dim, A4C 4.3 cm -------- Aortic arch Value Ref SI dim, A4C 6.2 cm -------- Arch diam 2.0 cm ---- Vol, ES, 2-p 71 ml -------- Vol/bsa, ES, 2-p (H) 40 ml/m^2 16 - 34 Inferior vena cava Value Ref Diam 1.8 cm ---- Right atrium Value Ref SI dim, ES 5.2 cm 3.4 - 5.3 ML dim, ES, A4C 3.9 cm 2.6 - 4.4 SI dim, ES, A4C 5.2 cm 3.4 - 5.3 Aortic valve Value Ref Ashley diam, S (L) 1.8 cm 1.9 - 2.7 Legend: (L) and (H) junior values outside specified reference range. Prepared and electronically signed by William Gamboa MD 11/08/2019 13:52
[2019-11-08 15:58] LABS: Troponin I 0.42 ng/mL (<0.03)
[2019-11-08] MEDS: Enoxaparin(*) 40 MG/0.4 ML SYR SUBCUT SCH (16:50)
[2019-11-08] MEDS ORDERED: hydrALAZINE IV* 20 MG/ML VIAL IV SLOW PU ONE (21:12)
[2019-11-09] MEDS ORDERED: hydrALAZINE IV* 20 MG/ML VIAL IV SLOW PU PRN (00:25)
[2019-11-09 05:40] LABS: Hematocrit 23 % (35-47); Hemoglobin 7.7 g/dL (12.0-16.0); Mean Corpuscular HGB Conc 33 g/dL (31-36); Mean Corpuscular Hemoglobin 31 pg (27-31); Mean Corpuscular Volume 95 fL (80-97); Mean Platelet Volume 8.1 fL (7.4-10.4); Platelet Count 188 10^3/uL (150-450); Red Blood Count 2.46 10^6 /uL (3.70-4.87); Red Cell Distribution Width 27 % (10-15); White Blood Count 43.5 10^3/uL (3.5-10.8)
[2019-11-09 06:59] LABS: Polychromasia 1+
[2019-11-09 07:01] LABS: ABS Basophils 1.7 10^3/ul (0-0.2); ABS Eosinophils 1.2 10^3/ul (0-0.6); ABS Lymphocytes 3.8 10^3/ul (1.0-4.8); ABS Monocytes 2.3 10^3/ul (0-0.8); ABS Neutrophils 34.5 10^3/ul (1.5-7.7); ABS Nucleated RBC 0.4 10^3/ul; Eosinophil % 2.8 %; Lymphocyte % 8.7 %; Nucleated Red Blood Cells % 0.9
[2019-11-09] MEDS: Cholecalciferol TAB* 1000 UNITS PO SCH (08:38)
[2019-11-09] MEDS: Ascorbic Acid TAB* 500 MG PO SCH (08:38)
[2019-11-09] MEDS: Multivitamins/Minerals TAB PO SCH (08:39)
[2019-11-09] MEDS: Aspirin 81 mg CHEW TAB* 81 MG TAB.CHEW PO SCH (08:39)
[2019-11-09] MEDS: Insulin LISPRO* 1 UNITS UNIT SUBCUT SCH ×2 (08:39→12:40)
[2019-11-09] MEDS: Cyanocobalamin TAB* 500 MCG PO SCH (08:39)
[2019-11-09] MEDS: RUXOLITINIB 10 MG PO SCH ×2 (08:45→20:26)
--- NOTE | 2019-11-09 12:43 | PN ---
Subjective Date of Service: 11/09/19 Interval History: Patient has no complaints. She tells me she normally ambulates on her own without assistive devices. She denies fever/chills, chest pain, difficulty breathing, abd pain, dysuria. She is agreeable to ARETHA at a SNF. Family History: Unchanged from Admission Social History: Unchanged from Admission Past Medical History: Unchanged from Admission Objective Active Medications: Acetaminophen (Tylenol Tab*) 650 mg PO Q4H PRN PRN Reason: mild to moderate pain Ascorbic Acid (Vitamin C Tab*) 500 mg PO DAILY [facility] Last Admin: 11/09/19 08:38 Dose: 500 mg Aspirin (Aspirin 81 Mg Chew Tab*) 81 mg PO DAILY [facility] Last Admin: 11/09/19 08:39 Dose: 81 mg Cholecalciferol (Vitamin D Tab*) 2,000 units PO DAILY [facility] Last Admin: 11/09/19 08:38 Dose: 2,000 units Cyanocobalamin (Vitamin B12 Tab*) 1,000 mcg PO DAILY [facility] Last Admin: 11/09/19 08:39 Dose: 1,000 mcg Dextrose (Dextrose 50% Vial 50 Ml*) 25 ml IV PUSH .FOR FS < 60 - SS PRN PRN Reason: FS < 60 Enoxaparin Sodium (Lovenox(*)) 40 mg SUBCUT Q24H [facility] Last Admin: 11/08/19 16:50 Dose: 40 mg Hydralazine HCl (Apresoline Iv*) 10 mg IV SLOW PU Q8H PRN PRN Reason: SBP > 180 Ceftriaxone Sodium 1 gm/ (Sodium Chloride) 50 mls @ 100 mls/hr IVPB Q24H [facility] Last Admin: 11/08/19 13:44 Dose: 100 mls/hr Insulin Human Lispro (Humalog*) 0 units SUBCUT AC [facility]; Protocol Last Admin: 11/09/19 08:39 Dose: 2 unit Multivitamins/Minerals (Theragran/Minerals Tab*) 1 tab PO DAILY [facility] Last Admin: 11/09/19 08:39 Dose: 1 tab Ruxolitinib (Jakafi (Nf)) 10 mg PO BID [facility] Last Admin: 11/09/19 08:45 Dose: Not Given Vital Signs - 8 hr 11/09/19 11/09/19 07:15 08:00 Temperature 99.5 F Pulse Rate 101 Respiratory 20 20 Rate Blood Pressure 142/50 (mmHg) O2 Sat by Pulse 99 Oximetry Oxygen Devices in Use Now: None Appearance: Thin, elderly white female, sitting in chair, appearing in NAD Eyes: No Scleral Icterus, - - PERRL Ears/Nose/Mouth/Throat: Mucous Membranes Moist Neck: Trachea Midline Respiratory: Symmetrical Chest Expansion and Respiratory Effort, Clear to Auscultation Cardiovascular: NL Sounds; No Murmurs; No JVD, RRR Abdominal: - - abd soft, nontender, nondistended; no suprapubic tenderness Extremities: No Edema, No Clubbing, Cyanosis Skin: No Rash or Ulcers Neurological: NL Muscle Strength and Tone, - - alert and oriented to location, self, situation but not time Result Diagrams: 11/09/19 04:54 11/08/19 09:06 Microbiology and Other Data: Microbiology 11/07/19 13:01 Urine Culture - Final Urine Escherichia Coli Assess/Plan/Problems-Billing Assessment: Ms. Mao is an 84 yo F with PMH of COPD, myelofibrosis, DM2, recurrent UTI; who presented to the ED after being found on the ground and was found to be meeting sepsis criteria, likely secondary to UTI. - Patient Problems (1) Sepsis Current Visit: Yes Status: Acute Comment: - Met criteria on admission with tachycardia, tachypnea; source is suspected to be UTI - Leukocytosis is chronic - Blood cultures were unfortunately never drawn and would be of low utility at this point due to 3 doses of abx (2) UTI (urinary tract infection) Current Visit: No Status: Acute Priority: High Onset Date: 11/05/14 Comment: - History of recurrent UTI (4 this year in our system), all pansensitive E. coli - Completed 1 month of cephalexin 1 week ago - Follows with Dr. Sal - Urine culture from this admission growing almodovar sensitive E. coli - Continue ceftriaxone (3) Hypoxia Current Visit: Yes Status: Acute Code(s): R09.02 - HYPOXEMIA SNOMED Code(s ): 417203042 Comment: -unclear etiology -no dyspnea and lungs clear -checking for rib fracture as perhaps patient is hypoventilating, no rib fractures on rib xray -ordering CTA to r/o PE as patient is also tachypneic (4) Elevated troponin Current Visit: Yes Status: Acute Code(s): R79.89 - OTHER SPECIFIED ABNORMAL FINDINGS OF BLOOD CHEMISTRY SNOMED Code(s): 649530764 Comment: - No CP or anginal equivalent - EKG on admission showing T wave inversion in V1, but no other ST changes - Suspect demand ischemia in setting of urosepsis - Trop peaked at 0.64 and has since downtrended (5) Fall Current Visit: Yes Status: Acute Comment: - Found down on the floor at home - Unknown cause, but low suspicion for syncope - Echo without and EF is wnl, does have diastolic dysfunction - ARETHA placement pending (6) Altered mental status Current Visit: No Status: Acute Priority: High Onset Date: 11/05/14 Code (s): R41.82 - ALTERED MENTAL STATUS, UNSPECIFIED SNOMED Code(s): 389497782 Comment: -dementia at baseline, supporitve care -appears at mental status baseline today -was likely with metabolic encephalopathy due to UTI, improved (7) COPD (chronic obstructive pulmonary disease) Current Visit: No Status: Chronic Priority: Medium Code(s): J44.9 - CHRONIC OBSTRUCTIVE PULMONARY DISEASE, UNSPECIFIED SNOMED Code(s): 68424822 Comment: - Not in exacerbation - No formal diagnosis, but CXR does show hyperinflation - Not on home medication (8) Diabetes mellitus, type 2 Current Visit: No Status: Chronic Priority: Medium Comment: - A1c 6.3% which is actually lower than recommendations for her age, likely trulicity can be discontinued at discharge -d/c SS lispro (9) Essential thrombocytosis Current Visit: No Status: Chronic Priority: Medium Code(s): D47.3 - ESSENTIAL (HEMORRHAGIC) THROMBOCYTHEMIA SNOMED Code(s): 632531288 Comment: -Evaluated by Dr. Felix -patient has hx of essential thrombocytosis with likely dysplastic transformation but reportedly no leukemia -plts are wnl today, though leukocytosis is still high which is chronic -continue ruxolitinib (10) HTN (hypertension) Current Visit: No Status: Chronic Priority: Medium Code(s): I10 - ESSENTIAL (PRIMARY) HYPERTENSION SNOMED Code(s): 75331983 Comment: -patient not on antihypertensive medications at home -was quite hypertensive overnight and hydralazine was ordered, but has not been needed today -will continue to monitor (11) DVT prophylaxis Current Visit: No Status: Acute Priority: Medium Onset Date: 11/05/14 Code(s): GTA6343 - SNOMED Code(s): 155846457 Comment: - Kristen (12) DNR (do not resuscitate) Current Visit: No Status: Acute Priority: Medium Onset Date: 11/05/14 Comment: Status and Disposition: Inpatient. ARETHA pending
[2019-11-09] MEDS: cefTRIAXone(*) 1 GM in NS 0.9% 50 ML* 50 ML IVPB SCH (14:41)
[2019-11-09] MEDS ORDERED: Iodixanol* (CONTRAST) 320 MG/ML 100 ML SDV IV ONE (17:32)
[2019-11-09] MEDS: Enoxaparin(*) 40 MG/0.4 ML SYR SUBCUT SCH (17:38)
[2019-11-10] MEDS: Multivitamins/Minerals TAB PO SCH (09:57)
[2019-11-10] MEDS: Aspirin 81 mg CHEW TAB* 81 MG TAB.CHEW PO SCH (09:57)
[2019-11-10] MEDS: Cholecalciferol TAB* 1000 UNITS PO SCH (09:57)
[2019-11-10] MEDS: Cyanocobalamin TAB* 500 MCG PO SCH (09:57)
[2019-11-10] MEDS: Ascorbic Acid TAB* 500 MG PO SCH (09:57)
[2019-11-10] MEDS: RUXOLITINIB 10 MG PO SCH ×2 (09:58→20:34)
--- NOTE | 2019-11-10 11:33 | PN ---
Progress Note - Progress Note Date of Service: 11/10/19 SOAP: Subjective: []Doing much better. She is more awake and alert. Little memory of prior events. No pain. She is walking to the bathroom but that is about it. She has SOB with exertion. Acetaminophen (Tylenol Tab*) 650 mg PO Q4H PRN PRN Reason: mild to moderate pain Ascorbic Acid (Vitamin C Tab*) 500 mg PO DAILY [facility] Last Admin: 11/10/19 09:57 Dose: 500 mg Aspirin (Aspirin 81 Mg Chew Tab*) 81 mg PO DAILY [facility] Last Admin: 11/10/19 09:57 Dose: 81 mg Cholecalciferol (Vitamin D Tab*) 2,000 units PO DAILY [facility] Last Admin: 11/10/19 09:57 Dose: 2,000 units Cyanocobalamin (Vitamin B12 Tab*) 1,000 mcg PO DAILY [facility] Last Admin: 11/10/19 09:57 Dose: 1,000 mcg Dextrose (Dextrose 50% Vial 50 Ml*) 25 ml IV PUSH .FOR FS < 60 - SS PRN PRN Reason: FS < 60 Enoxaparin Sodium (Lovenox(*)) 40 mg SUBCUT Q24H [facility] Last Admin: 11/09/19 17:38 Dose: 40 mg Hydralazine HCl (Apresoline Iv*) 10 mg IV SLOW PU Q8H PRN PRN Reason: SBP > 180 Ceftriaxone Sodium 1 gm/ (Sodium Chloride) 50 mls @ 100 mls/hr IVPB Q24H [facility] Last Admin: 11/09/19 14:41 Dose: 100 mls/hr Multivitamins/Minerals (Theragran/Minerals Tab*) 1 tab PO DAILY [facility] Last Admin: 11/10/19 09:57 Dose: 1 tab Ruxolitinib (Jakafi (Nf)) 10 mg PO BID [facility] Last Admin: 11/10/19 09:58 Dose: Not Given Objective: [] Vital Signs Temp Pulse Resp BP Pulse Ox 98.2 F 96 18 131/37 94 11/10/19 07:09 11/10/19 07:09 11/10/19 07:09 11/10/19 07:09 11/10/19 07:09 HEENT: OM moist, pale, no thrush dec BS, CTA RRR S1S2 Abd + spleen, NT ND Ext No C/C/E Assessment: []84 year old female with long standing ET, Rx Ruxolitinib and has bee stable. Blood counts on admission c/w baseline. Admission with UTI and decompensation of long standing dementia. Now improving, her mental status today is baseline today and improved from . Plan: []1. Continue Ruxolitinib - transfuse 1 U PRBC today or tomorrow. 2. Urine infection is improved. 3. Dementia decompensation second to sepsis. Encouraged her going to [facility]. She has friends there already.
[2019-11-10] MEDS ORDERED: Furosemide IV* 10 MG/ML 2 ML VIAL (20 MG) IV SLOW PU SCH (13:00)
[2019-11-10] MEDS: cefTRIAXone(*) 1 GM in NS 0.9% 50 ML* 50 ML IVPB SCH (13:18)
--- NOTE | 2019-11-10 13:19 | PN ---
Subjective Date of Service: 11/10/19 Interval History: Patient has no complaints. She's able to tell me the details of her conversation with Dr. Felix this morning. She has no complaints. Denies dysuria, abd pain, fever/chills, chest pain, dyspnea. No acute events overnight per nursing. She has not been able to receive her home ruxolitinib as it needs to be brought from home. Patient has no local family but lives at [facility]. Family History: Unchanged from Admission Social History: Unchanged from Admission Past Medical History: Unchanged from Admission Objective Active Medications: Acetaminophen (Tylenol Tab*) 650 mg PO Q4H PRN PRN Reason: mild to moderate pain Ascorbic Acid (Vitamin C Tab*) 500 mg PO DAILY [facility] Last Admin: 11/10/19 09:57 Dose: 500 mg Aspirin (Aspirin 81 Mg Chew Tab*) 81 mg PO DAILY [facility] Last Admin: 11/10/19 09:57 Dose: 81 mg Cholecalciferol (Vitamin D Tab*) 2,000 units PO DAILY [facility] Last Admin: 11/10/19 09:57 Dose: 2,000 units Cyanocobalamin (Vitamin B12 Tab*) 1,000 mcg PO DAILY [facility] Last Admin: 11/10/19 09:57 Dose: 1,000 mcg Dextrose (Dextrose 50% Vial 50 Ml*) 25 ml IV PUSH .FOR FS < 60 - SS PRN PRN Reason: FS < 60 Enoxaparin Sodium (Lovenox(*)) 40 mg SUBCUT Q24H [facility] Last Admin: 11/09/19 17:38 Dose: 40 mg Furosemide (Lasix Iv*) 20 mg IV SLOW PU DAILY [facility] Hydralazine HCl (Apresoline Iv*) 10 mg IV SLOW PU Q8H PRN PRN Reason: SBP > 180 Ceftriaxone Sodium 1 gm/ (Sodium Chloride) 50 mls @ 100 mls/hr IVPB Q24H [facility] Last Admin: 11/09/19 14:41 Dose: 100 mls/hr Multivitamins/Minerals (Theragran/Minerals Tab*) 1 tab PO DAILY [facility] Last Admin: 11/10/19 09:57 Dose: 1 tab Ruxolitinib (Jakafi (Nf)) 10 mg PO BID [facility] Last Admin: 11/10/19 09:58 Dose: Not Given Vital Signs - 8 hr 11/10/19 07:09 Temperature 98.2 F Pulse Rate 96 Respiratory 18 Rate Blood Pressure 131/37 (mmHg) O2 Sat by Pulse 94 Oximetry Oxygen Devices in Use Now: None Result Diagrams: 11/10/19 13:55 11/08/19 09:06 Microbiology and Other Data: Microbiology 11/07/19 13:01 Urine Culture - Final Urine Escherichia Coli Assess/Plan/Problems-Billing Assessment: Ms. Mao is an 84 yo F with PMH of COPD, myelofibrosis, DM2, recurrent UTI; who presented to the ED after being found on the ground and was found to be meeting sepsis criteria, likely secondary to UTI. - Patient Problems (1) UTI (urinary tract infection) Current Visit: No Status: Acute Priority: High Onset Date: 11/05/14 Comment: - History of recurrent UTI (4 this year in our system), all pansensitive E. coli - Completed 1 month of cephalexin 1 week ago - Follows with Dr. Sal - Urine culture from this admission growing almodovar sensitive E. coli - Continue ceftriaxone (2) Normocytic anemia Current Visit: Yes Status: Resolved Code(s): D64.9 - ANEMIA, UNSPECIFIED SNOMED Code(s): 494984478 Comment: -chronic, but worsened yesterday. I suspect dilutional due to IVF -repeat H&H tomorrow -Dr. Felix consulted; recommends 1 U PRBC if hgb <8 tomorrow (3) Sepsis Current Visit: Yes Status: Acute Comment: - Met criteria on admission with tachycardia, tachypnea; source is suspected to be UTI - Leukocytosis is chronic - Blood cultures were unfortunately never drawn and would be of low utility at this point due to 3 doses of abx (4) Hypoxia Current Visit: Yes Status: Acute Code(s): R09.02 - HYPOXEMIA SNOMED Code(s ): 251541269 Comment: -unclear etiology -no dyspnea and lungs clear -checked for rib fracture as perhaps patient is hypoventilating, no rib fractures on rib xray -CTA without evidence of PE -CTA does demonstrate small pleural effusion, giving IV lasix and will continue to monitor -was weaned off O2 today but oxygen saturation went down to 72%, will keep at 1L and wean as tolerated (5) Elevated troponin Current Visit: Yes Status: Acute Code(s): R79.89 - OTHER SPECIFIED ABNORMAL FINDINGS OF BLOOD CHEMISTRY SNOMED Code(s): 490497162 Comment: - No CP or anginal equivalent - EKG on admission showing T wave inversion in V1, but no other ST changes - Suspect demand ischemia in setting of urosepsis - Trop peaked at 0.64 and has since downtrended (6) Fall Current Visit: Yes Status: Acute Comment: - Found down on the floor at home - Unknown cause, but low suspicion for syncope - Echo without and EF is wnl, does have diastolic dysfunction - ARETHA placement pending (7) Altered mental status Current Visit: No Status: Acute Priority: High Onset Date: 11/05/14 Code (s): R41.82 - ALTERED MENTAL STATUS, UNSPECIFIED SNOMED Code(s): 123887109 Comment: -dementia at baseline, supporitve care -appears at mental status baseline today -was likely with metabolic encephalopathy due to UTI, improved (8) COPD (chronic obstructive pulmonary disease) Current Visit: No Status: Chronic Priority: Medium Code(s): J44.9 - CHRONIC OBSTRUCTIVE PULMONARY DISEASE, UNSPECIFIED SNOMED Code(s): 74120687 Comment: - Not in exacerbation - No formal diagnosis, but CXR does show hyperinflation - Not on home medication (9) Diabetes mellitus, type 2 Current Visit: No Status: Chronic Priority: Medium Comment: - A1c 6.3% which is actually lower than recommendations for her age, likely trulicity can be discontinued at discharge -d/c SS lispro (10) Essential thrombocytosis Current Visit: No Status: Chronic Priority: Medium Code(s): D47.3 - ESSENTIAL (HEMORRHAGIC) THROMBOCYTHEMIA SNOMED Code(s): 250960698 Comment: -Appreicate Dr. 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 but reportedly no leukemia -plts are wnl today, though leukocytosis is still high which is chronic -ruxolitinib ordered, but needs to be brought from home and has not yet, case management involved (11) HTN (hypertension) Current Visit: No Status: Chronic Priority: Medium Code(s): I10 - ESSENTIAL (PRIMARY) HYPERTENSION SNOMED Code(s): 32411583 Comment: -patient not on antihypertensive medications at home -was quite hypertensive overnight into 11/09/19 however normotensive today -will continue to monitor (12) DVT prophylaxis Current Visit: No Status: Acute Priority: Medium Onset Date: 11/05/14 Code(s): PTQ3043 - SNOMED Code(s): 775757384 Comment: Andrea Peterson (13) DNR (do not resuscitate) Current Visit: No Status: Acute Priority: Medium Onset Date: 11/05/14 Comment: Status and Disposition: Inpatient. ARETHA pending. Anticipate d/c to [facility] Tuesday
[2019-11-10 14:21] LABS: Hematocrit 24 % (35-47); Hemoglobin 7.7 g/dL (12.0-16.0)
[2019-11-10] MEDS: Enoxaparin(*) 40 MG/0.4 ML SYR SUBCUT SCH (17:40)
[2019-11-10] MEDS: Acetaminophen TAB* 325 MG PO PRN (19:49)
[2019-11-11 06:02] LABS: Hematocrit 21 % (35-47); Hemoglobin 6.9 g/dL (12.0-16.0); Mean Corpuscular HGB Conc 33 g/dL (31-36); Mean Corpuscular Hemoglobin 31 pg (27-31); Mean Corpuscular Volume 95 fL (80-97); Mean Platelet Volume 8.5 fL (7.4-10.4); Platelet Count 158 10^3/uL (150-450); Red Blood Count 2.25 10^6 /uL (3.70-4.87); Red Cell Distribution Width 25 % (10-15); White Blood Count 34.7 10^3/uL (3.5-10.8)
[2019-11-11 06:12] LABS: BUN/Creatinine Ratio 30.2 (8-20); Calcium 8.4 mg/dL (8.6-10.3); EGFR African American 108.7 (>60); EGFR Non-African American 89.8 (>60); Potassium 3.1 mmol/L (3.5-5.0)
[2019-11-11 07:33] LABS: Polychromasia 1+
[2019-11-11] MEDS: RUXOLITINIB 10 MG PO SCH ×2 (07:33→19:17)
[2019-11-11 07:36] LABS: ABS Basophils 1.7 10^3/ul (0-0.2); ABS Eosinophils 1.8 10^3/ul (0-0.6); ABS Lymphocytes 4.7 10^3/ul (1.0-4.8); ABS Monocytes 1.9 10^3/ul (0-0.8); ABS Neutrophils 24.5 10^3/ul (1.5-7.7); ABS Nucleated RBC 0.7 10^3/ul; Eosinophil % 5.3 %; Lymphocyte % 13.6 %
--- NOTE | 2019-11-11 08:19 | PN ---
Subjective Date of Service: 11/11/19 Interval History: Patient awakens easily from sleep. She asks if Dr. Felix is coming to see her today. She denies chest pain, difficulty breathing, abd pain, fever/chills. Family History: Unchanged from Admission Social History: Unchanged from Admission Past Medical History: Unchanged from Admission Objective Active Medications: Acetaminophen (Tylenol Tab*) 650 mg PO Q4H PRN PRN Reason: mild to moderate pain Last Admin: 11/10/19 19:49 Dose: 650 mg Ascorbic Acid (Vitamin C Tab*) 500 mg PO DAILY [facility] Last Admin: 11/10/19 09:57 Dose: 500 mg Aspirin (Aspirin 81 Mg Chew Tab*) 81 mg PO DAILY [facility] Last Admin: 11/10/19 09:57 Dose: 81 mg Cholecalciferol (Vitamin D Tab*) 2,000 units PO DAILY [facility] Last Admin: 11/10/19 09:57 Dose: 2,000 units Cyanocobalamin (Vitamin B12 Tab*) 1,000 mcg PO DAILY [facility] Last Admin: 11/10/19 09:57 Dose: 1,000 mcg Dextrose (Dextrose 50% Vial 50 Ml*) 25 ml IV PUSH .FOR FS < 60 - SS PRN PRN Reason: FS < 60 Enoxaparin Sodium (Lovenox(*)) 40 mg SUBCUT Q24H [facility] Last Admin: 11/10/19 17:40 Dose: 40 mg Furosemide (Lasix Iv*) 20 mg IV SLOW PU DAILY [facility] Last Admin: 11/10/19 13:18 Dose: 20 mg Hydralazine HCl (Apresoline Iv*) 10 mg IV SLOW PU Q8H PRN PRN Reason: SBP > 180 Ceftriaxone Sodium 1 gm/ (Sodium Chloride) 50 mls @ 100 mls/hr IVPB Q24H [facility] Last Admin: 11/10/19 13:18 Dose: 100 mls/hr Multivitamins/Minerals (Theragran/Minerals Tab*) 1 tab PO DAILY [facility] Last Admin: 11/10/19 09:57 Dose: 1 tab Ruxolitinib (Jakafi (Nf)) 10 mg PO BID [facility] Last Admin: 11/11/19 07:33 Dose: Not Given Vital Signs - 8 hr 11/11/19 11/11/19 03:19 07:44 Temperature 98.6 F 99.4 F Pulse Rate 84 91 Respiratory 16 20 Rate Blood Pressure 140/42 132/36 (mmHg) O2 Sat by Pulse 97 96 Oximetry Oxygen Devices in Use Now: None Appearance: Elderly, white female, laying in hospital bed, appearing comfortable and in NAD Eyes: No Scleral Icterus, - - PERRL Ears/Nose/Mouth/Throat: Mucous Membranes Moist Neck: Trachea Midline Respiratory: Symmetrical Chest Expansion and Respiratory Effort, Clear to Auscultation Cardiovascular: NL Sounds; No Murmurs; No JVD, RRR Abdominal: - - abd soft, nontender, nonidstended Extremities: No Edema, No Clubbing, Cyanosis Skin: No Rash or Ulcers Neurological: NL Muscle Strength and Tone, - - alert, oriented to location, self , situation, but not time Result Diagrams: 11/11/19 14:23 11/11/19 05:36 Microbiology and Other Data: Microbiology 11/07/19 13:01 Urine Culture - Final Urine Escherichia Coli Assess/Plan/Problems-Billing Assessment: Ms. Mao is an 84 yo F with PMH of COPD, myelofibrosis, DM2, recurrent UTI; who presented to the ED after being found on the ground and was found to be meeting sepsis criteria, likely secondary to UTI. - Patient Problems (1) UTI (urinary tract infection) Current Visit: No Status: Acute Priority: High Onset Date: 11/05/14 Comment: - History of recurrent UTI (4 this year in our system), all pansensitive E. coli - Completed 1 month of cephalexin 1 week ago - Follows with Dr. Sal - Urine culture from this admission growing almodovar sensitive E. 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 Felix recommendation. Good response on repeat H &H (3) Sepsis Current Visit: Yes Status: Acute Comment: - Met criteria on admission with tachycardia, tachypnea; source is suspected to be UTI - Leukocytosis is chronic - Blood cultures were unfortunately never drawn and would be of low utility at this point due to 3 doses of abx (4) Hypoxia Current Visit: Yes Status: Acute Code(s): R09.02 - HYPOXEMIA SNOMED Code(s ): 389913427 Comment: -unclear etiology -no dyspnea and lungs clear -checked for rib fracture as perhaps patient is hypoventilating, no rib fractures on rib xray -CTA without evidence of PE -CTA does demonstrate small pleural effusion, giving IV lasix and will continue to monitor -attempted weaning off O2 again today and again desaturation to ~75%; on 1L O2 (5) Elevated troponin Current Visit: Yes Status: Acute Code(s): R79.89 - OTHER SPECIFIED ABNORMAL FINDINGS OF BLOOD CHEMISTRY SNOMED Code(s): 121300453 Comment: - No CP or anginal equivalent - EKG on admission showing T wave inversion in V1, but no other ST changes - Suspect demand ischemia in setting of urosepsis - Trop peaked at 0.64 and has since downtrended (6) Fall Current Visit: Yes Status: Acute Comment: - Found down on the floor at home - Unknown cause, but low suspicion for syncope - Echo without and EF is wnl, does have diastolic dysfunction - ARETHA placement pending (7) Altered mental status Current Visit: No Status: Acute Priority: High Onset Date: 11/05/14 Code (s): R41.82 - ALTERED MENTAL STATUS, UNSPECIFIED SNOMED Code(s): 522326256 Comment: -dementia at baseline, supporitve care -appears at mental status baseline today -was likely with metabolic encephalopathy due to UTI, improved (8) COPD (chronic obstructive pulmonary disease) Current Visit: No Status: Chronic Priority: Medium Code(s): J44.9 - CHRONIC OBSTRUCTIVE PULMONARY DISEASE, UNSPECIFIED SNOMED Code(s): 02451022 Comment: - Not in exacerbation - No formal diagnosis, but CXR does show hyperinflation - Not on home medication (9) Diabetes mellitus, type 2 Current Visit: No Status: Chronic Priority: Medium Comment: - A1c 6.3% which is actually lower than recommendations for her age, likely trulicity can be discontinued at discharge -d/c SS lispro (10) Essential thrombocytosis Current Visit: No Status: Chronic Priority: Medium Code(s): D47.3 - ESSENTIAL (HEMORRHAGIC) THROMBOCYTHEMIA SNOMED Code(s): 331416812 Comment: -Appreicate Dr. 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 but reportedly no leukemia -plts are wnl today, though leukocytosis is still high which is chronic -ruxolitinib ordered, but needs to be brought from home and has not yet, case management involved (11) HTN (hypertension) Current Visit: No Status: Chronic Priority: Medium Code(s): I10 - ESSENTIAL (PRIMARY) HYPERTENSION SNOMED Code(s): 08580687 Comment: -patient not on antihypertensive medications at home -was quite hypertensive overnight into 11/09/19 however normotensive today -will continue to monitor (12) DVT prophylaxis Current Visit: No Status: Acute Priority: Medium Onset Date: 11/05/14 Code(s): XZL7828 - SNOMED Code(s): 626641039 Comment: - Lovenox (13) DNR (do not resuscitate) Current Visit: No Status: Acute Priority: Medium Onset Date: 11/05/14 Comment: Status and Disposition: Inpatient. ARETHA pending. Anticipate d/c to [place] Tuesday
[2019-11-11] MEDS: Furosemide IV* 10 MG/ML VIAL (40 MG) IV SCH (09:44)
[2019-11-11] MEDS: Cholecalciferol TAB* 1000 UNITS PO SCH (09:55)
[2019-11-11] MEDS: Ascorbic Acid TAB* 500 MG PO SCH (09:56)
[2019-11-11] MEDS: Multivitamins/Minerals TAB PO SCH (09:56)
[2019-11-11] MEDS: Aspirin 81 mg CHEW TAB* 81 MG TAB.CHEW PO SCH (09:56)
[2019-11-11] MEDS: Cyanocobalamin TAB* 500 MCG PO SCH (09:56)
[2019-11-11] MEDS: cefTRIAXone(*) 1 GM in NS 0.9% 50 ML* 50 ML IVPB SCH (13:45)
[2019-11-11 14:43] LABS: Hematocrit 27 % (35-47); Hemoglobin 8.8 g/dL (12.0-16.0)
[2019-11-11] MEDS: Enoxaparin(*) 40 MG/0.4 ML SYR SUBCUT SCH (16:33)
--- NOTE | 2019-11-12 01:45 | DS ---
CC: Dr. Felix * DISCHARGE SUMMARY: DATE OF ADMISSION: 11/07/19 DATE OF ANTICIPATED DISCHARGE: 11/12/19 PROVIDER: GEO Lazaro ATTENDING PHYSICIAN: Dr. Lidia Garcia * (dictated by GEO Lazaro). PRIMARY CARE PROVIDER: Dr. Felix. PRIMARY DIAGNOSES: 1. Fall, unclear whether mechanical fall versus syncope. 2. Urinary tract infection. 3. Diastolic heart failure SECONDARY DIAGNOSES: 1. Myelofibrosis. 2. Myelodysplastic syndrome. 3. Essential thrombocytosis. 4. Diabetes mellitus, type 2. 5. Chronic obstructive pulmonary disease. 6. Arthritis. 7. Memory loss. PERTINENT STUDIES AND LAB DATA: Hemoglobin on 11/09/19, 6.9, after 1 unit PRBC , hemoglobin 8.8. Chest/thorax CTA, 11/09/19: No pulmonary emboli. Small pleural effusion with associated atelectasis versus atypical pneumonia. Nonspecific splenomegaly. Right thyroid lobe nodule. No followup imaging indicated per ACR guidelines. Rib x-ray on 11/09/19, impression: No definite fracture of ribs is noted. Transthoracic echocardiogram on 11/08/19: EF 65% to 70% wall thickness is normal. Grade 1 diastolic dysfunction, aortic valve without significant stenosis. Please see full report for further details. Lumbar spine x-ray on 11/07/19: Degenerative change in appearance due to bony demineralization as described in further report. Brain CT on 11/07/19: No acute intracranial abnormality by CT. Mild chronic small vessel ischemic disease likely. Moderate cerebral volume loss. Chest x-ray on 11/07/19, impression: Hyperinflation. No acute active cardiopulmonary disease. Urine culture demonstrating almodovar sensitive E. coli. HISTORY OF PRESENT ILLNESS/HOSPITAL COURSE: Alejandra Mao is an 84-year-old white female with past medical history significant for myelodysplastic syndrome ; essential thrombocytopenia; diabetes mellitus, type 2; COPD; arthritis, who presents to the emergency department on 11/07/19 after being found in the floor at home after an unwitnessed fall. Please see further details in admitting history and physical written by GEO Joaquin. It is unclear whether her fall is mechanical or otherwise as the patient does have underlying memory loss issues. She does not remember the situation of her fall; however, since she was in the bathroom, this could likely be mechanical. She was having diarrhea and vasovagal syncope in relation to her bowel movement is on the differential as well. Her echocardiogram was of little concern for any cardiac causes of syncope. Additionally, she was found to have a UTI and this likely made the patient more prone to a mechanical fall. She was empirically started on ceftriaxone and her urine culture demonstrated sensitivity, and ceftriaxone was continued during her current hospital stay. She did not complain of dysuria. She was afebrile and she did have a persistent leukocytosis, however, this is chronic. The patient had ongoing memory loss issues and was more acutely altered as far as her mental status initially during hospital stay and has continued to improve to her baseline. This was most likely related to metabolic encephalopathy related to her UTI. She was evaluated by Physical Therapy during her hospital stay in which it was determined that she would benefit from acute rehab. She was evaluated by Dr. Felix during the hospital stay, who did recommend transfusion if her hemoglobin fell below 8 and 1 unit of PRBC was administered and labs are described as above. The patient was nonsymptomatic of her anemia and she does have chronic normocytic anemia which was consistent with her MDS. The patient was found to have hypoxia during her hospital stay. She has been maintained well on 1 L of oxygen, but when 1 L of oxygen is removed, she does have significant desaturation to 75%. She was found to have diastolic heart failure and she was found to have small pleural effusions on her CT angiogram. This CT angiogram ruled out pulmonary embolism. She was given IV Lasix and p.o. Lasix should be continued to improve this after discharge. Initially at presentation, the patient had an elevated troponin, this peaked at 0.56 and did downtrend ultimately. She does not have any anginal symptoms. She had no ischemic changes other than isolated T-wave inversions at V1, which has been significant and I did suspect that this is due to demand ischemia in the setting of her acute UTI. Regarding her diabetes, her home Trulicity was held during her hospital stay. Her A1c was found to be 6.3, which was actually lower than recommendations for glycemic control for her age. Her blood glucose was overall in acceptable range during her hospital stay. The patient did have significant hypertension on the second day of her hospital stay; however, I questioned the validity of these measurements as she had a documentation of 200/50 and it is unclear whether this was done manually or not ; however, later during her hospital stay, she was normotensive and no antihypertensive medication was needed orally. Unfortunately, her home ruxolitinib was not given during her hospital stay because it needed to be brought from home due to being not on the formulary at the hospital and she was unable to have anyone bring this to the hospital from her home. Case management has been involved to facilitate with this process to get the medicine to [place] for her subacute rehab stay. DISCHARGE PLAN: Diet: Carbohydrate consistent diet. Activity: The patient may return to normal activity as tolerated. The patient is discharged to [place] for subacute rehab. The patient needs one liter of oxygen. As previously mentioned, I recommend continuing Lasix for 1 week and reevaluating her need for oxygen as I likely suspect this will not be needed usp. BMP and CBC should be repeated in 1 week. Please start her on cefdinir in the evening of 11/12/19, then continue until completion. She should follow up with her primary care provider, Dr. Felix, 1 week after discharge from [place]. The patient will be providing her ruxolitinib from home to [place] and will be provided through the duration.. A friend will be transporting it. The patient should return to the emergency department if she experience any hematuria, dysuria, fever, chills, abdominal pain, COPD pain, lower back pain, chest pain, difficulty breathing, or loss of consciousness. DISCHARGE MEDICATIONS: New medications: 1. Cefdinir 300 mg p.o. b.i.d. x9 doses. 2. Lasix 20 mg p.o. daily x7 days. Continued home medications: 1. Vitamin D 2000 units p.o. daily. 2. Multivitamin 1 tab p.o. daily. 3. Ruxolitinib 10 mg p.o. b.i.d. 4. Vitamin C 500 mg p.o. daily. 5. Vitamin B12 1000 mcg p.o. daily. 6. Tylenol 650 mg p.o. q.4 hours p.r.n. pain. Discontinued home medications: 1. Trulicity 0.5 mg subcu weekly. CONDITION ON DISCHARGE: Stable. DISPOSITION: [place] for subacute rehab. TIME SPENT: Approximately 40 minutes was spent on this discharge, approximately half of that time was spent at bedside evaluating the patient and discussing the plan of care. GEO LAZARO [id number]/[facility] #: [id number] [facility] MEDICAL CENTERHeribetro
[2019-11-12] MEDS: Acetaminophen TAB* 325 MG PO PRN (03:53)
[2019-11-12 07:45] LABS: Hematocrit 27 % (35-47)
[2019-11-12 08:01] LABS: BUN/Creatinine Ratio 27.8 (8-20); Calcium 8.2 mg/dL (8.6-10.3); EGFR African American 93.2 (>60)
[2019-11-12] MEDS: RUXOLITINIB 10 MG PO SCH (09:04)
[2019-11-12] MEDS: Cholecalciferol TAB* 1000 UNITS PO SCH (09:12)
[2019-11-12] MEDS: Cyanocobalamin TAB* 500 MCG PO SCH (09:12)
[2019-11-12] MEDS: Aspirin 81 mg CHEW TAB* 81 MG TAB.CHEW PO SCH (09:12)
[2019-11-12] MEDS: Furosemide IV* 10 MG/ML VIAL (40 MG) IV SCH (09:13)
[2019-11-12] MEDS: Multivitamins/Minerals TAB PO SCH (09:13)
[2019-11-12] MEDS: Ascorbic Acid TAB* 500 MG PO SCH (09:13)
[2019-11-12] MEDS ORDERED: Potassium Chlor TAB* 20 MEQ TAB.ER PO ONE (09:26)
[2019-11-12] MEDS ORDERED: KCL 20 MEQ/100 ML IVPREMIX* 20 MEQ/100 ML BAG IV ONE (09:26)
[2019-11-12 12:04] VITALS: BP 132/49
[2019-11-12] MEDS: cefTRIAXone(*) 1 GM in NS 0.9% 50 ML* 50 ML IVPB SCH (12:35)
== END 2019-11-12 14:20 | DRG 871 ==
LOC: ED 12:25 → MED 16:06
PROVIDERS: ADMIT Internal Medicine; ATTEND Internal Medicine
PROC: 30233N1 Transfusion of Nonautologous Red Blood Cells into Peripheral Vein, Percutaneous Approach (ICD-10-PCS; principal; 2019-11-11)
DX: A41.9 Sepsis, unspecified organism (principal); G93.41 Metabolic encephalopathy; N39.0 Urinary tract infection, site not specified; I50.30 Unspecified diastolic (congestive) heart failure; D75.81 Myelofibrosis; J98.11 Atelectasis; I24.8 Other forms of acute ischemic heart disease; B96.20 Unspecified Escherichia coli [E. coli] as the cause of diseases classified elsewhere; Z66 Do not resuscitate; D46.9 Myelodysplastic syndrome, unspecified; D47.3 Essential (hemorrhagic) thrombocythemia; E11.9 Type 2 diabetes mellitus without complications; J44.9 Chronic obstructive pulmonary disease, unspecified; F03.90 Unspecified dementia, unspecified severity, without behavioral disturbance, psychotic disturbance, mood disturbance, and anxiety; M19.90 Unspecified osteoarthritis, unspecified site; R09.02 Hypoxemia; D64.9 Anemia, unspecified; R74.9 Abnormal serum enzyme level, unspecified; R41.3 Other amnesia; W18.30XA Fall on same level, unspecified, initial encounter; Y92.002 Bathroom of unspecified non-institutional (private) residence as the place of occurrence of the external cause; Z79.84 Long term (current) use of oral hypoglycemic drugs; Z79.1 Long term (current) use of non-steroidal anti-inflammatories (NSAID); Z79.899 Other long term (current) drug therapy; Z88.2 Allergy status to sulfonamides; Z88.8 Allergy status to other drugs, medicaments and biological substances; Z87.891 Personal history of nicotine dependence
CPT/HCPCS: 36415; 70450; 71045; 71110; 71275; 72100; 80048; 80053; 80320; 80329; 81003; 81015; 82140; 82550; 83036; 83605; 83735; 84443; 84484; 85014; 85018; 85025; 85060; 85379; 85610; 86850; 86900; 86901; 86922; 87077; 87086; 87186; 93005; 93306; 99232; 99284; A9270-GY; G0480; G8978-GP-CK; G8979-GP-CJ; J0360; J0696; J1650; J1940; J3480; P9040; Q9967

== ENCOUNTER 2020-07-28 16:09 | Inpatient (IN) ==
[2020-07-28 17:46] LABS: ALT 14 U/L (7-52); AST 25 U/L (13-39); Albumin 3.8 g/dL (3.2-5.2); Albumin/Globulin Ratio 1.5 (1-3); Alkaline Phosphatase 83 U/L (34-104); Anion Gap 8 mmol/L (2-11); BUN/Creatinine Ratio 22.2 (8-20); Blood Urea Nitrogen 16 mg/dL (6-24); CO2 Carbon Dioxide 30 mmol/L (22-32); Calcium 9.1 mg/dL (8.6-10.3); Chloride 100 mmol/L (101-111); EGFR African American 92.9 (>60); EGFR Non-African American 76.8 (>60); Globulin 2.5 g/dL (2-4); Glucose 195 mg/dL (70-100); Potassium 3.5 mmol/L (3.5-5.0); Sodium 138 mmol/L (135-145); Total Protein 6.3 g/dL (6.4-8.9)
[2020-07-28 17:48] LABS: Troponin I 0.04 ng/mL (<0.03)
[2020-07-28 17:51] LABS: Acetaminophen < 15 mcg/mL; Alcohol, S < 10 mg/dL (<10); Salicylate < 2.50 mg/dL (<30)
[2020-07-28 17:55] LABS: TSH Ultra Thyroid Stim Horm 1.63 mcIU/mL (0.34-5.60)
[2020-07-28 18:22] LABS: ABS Basophils 0.2 10^3/ul (0-0.2); ABS Eosinophils 1.8 10^3/ul (0-0.6); ABS Lymphocytes 4.6 10^3/ul (1.0-4.8); ABS Monocytes 2.5 10^3/ul (0-0.8); ABS Nucleated RBC 1.5 10^3/ul; Eosinophil % 3.7 %; Hematocrit 28 % (35-47); Hemoglobin 9.2 g/dL (12.0-16.0); Lymphocyte % 9.4 %; Mean Corpuscular HGB Conc 33 g/dL (31-36); Mean Corpuscular Hemoglobin 32 pg (27-31); Mean Corpuscular Volume 97 fL (80-97); Mean Platelet Volume 7.8 fL (7.4-10.4); Nucleated Red Blood Cells % 3.1; Platelet Count 158 10^3/uL (150-450); Red Blood Count 2.86 10^6 /uL (3.70-4.87); Red Cell Distribution Width 24 % (10-15); White Blood Count 49.1 10^3/uL (3.5-10.8)
[2020-07-28] MEDS ORDERED: Ondansetron 4 mg VIAL 2 MG/ML 2 ml VIAL IV PRN (19:37)
[2020-07-28] MEDS ORDERED: hydrALAZINE 20 mg/ml 1 ML Vial IV IV SLOW PU PRN (19:41)
[2020-07-28 19:43] LABS: Urine Appearance Turbid; Urine Bilirubin Negative (Negative); Urine Blood 1+ (Negative); Urine Color Amber; Urine Glucose Negative (Negative); Urine Ketones Trace (Negative); Urine Nitrite Negative (Negative); Urine Protein 2+(100 mg/dL) (Negative); Urine Specific Gravity 1.013 (1.010-1.030); Urine Urobilinogen Positive (Negative)
[2020-07-28 19:48] LABS: Urine Bacteria Absent (Absent); Urine Red Blood Cell 1+(3-5/hpf) (Absent); Urine Squamous Epithelial Cell Present (Absent); Urine White Blood Cell 3+(>20/hpf) (Absent)
[2020-07-28] MEDS ORDERED: Albuterol HFA INHALER 8 gm MDI INH PRN (19:58)
[2020-07-28 20:19] LABS: Creatine Kinase 44 U/L (10-223)
[2020-07-28 20:45] LABS: Troponin I 0.04 ng/mL (<0.03)
[2020-07-28] MEDS: cefTRIAXone 1 gm/50 mL NS BAG 1 GM/50 ML BAG IVPB SCH (23:35)
[2020-07-28] MEDS: Enoxaparin 40 MG/0.4 ML SYR SUBCUT SCH (23:36)
[2020-07-28] MEDS: RUXOLITINIB 10 MG PO SCH (23:36)
[2020-07-29 07:08] LABS: Hematocrit 26 % (35-47); Hemoglobin 8.4 g/dL (12.0-16.0); Mean Corpuscular HGB Conc 32 g/dL (31-36); Mean Corpuscular Hemoglobin 31 pg (27-31); Mean Corpuscular Volume 97 fL (80-97); Platelet Count 146 10^3/uL (150-450); Red Blood Count 2.68 10^6 /uL (3.70-4.87); Red Cell Distribution Width 25 % (10-15); White Blood Count 38.3 10^3/uL (3.5-10.8)
[2020-07-29 07:10] LABS: BUN/Creatinine Ratio 23.8 (8-20); Calcium 8.6 mg/dL (8.6-10.3); EGFR African American 77.8 (>60); EGFR Non-African American 64.3 (>60); Potassium 3.4 mmol/L (3.5-5.0)
[2020-07-29 08:44] LABS: Polychromasia 1+
[2020-07-29] MEDS: Cholecalciferol (VIT D3) 1,000 unit TAB PO SCH (09:19)
[2020-07-29] MEDS: RUXOLITINIB 10 MG PO SCH ×2 (09:19→21:36)
[2020-07-29] MEDS: Multivitamins/Minerals TAB PO SCH (09:19)
[2020-07-29 14:49] LABS: C Reactive Protein 152.11 mg/L (<8.01)
[2020-07-29 15:16] LABS: Vitamin D Total 25(OH) 31.1 ng/mL (20-50)
[2020-07-29] MEDS: cefTRIAXone 1 gm/50 mL NS BAG 1 GM/50 ML BAG IVPB SCH (21:26)
[2020-07-29] MEDS: Enoxaparin 40 MG/0.4 ML SYR SUBCUT SCH (21:26)
[2020-07-30 07:12] LABS: Hematocrit 24 % (35-47); Mean Corpuscular HGB Conc 33 g/dL (31-36); Mean Corpuscular Hemoglobin 32 pg (27-31); Mean Corpuscular Volume 97 fL (80-97); Mean Platelet Volume 7.8 fL (7.4-10.4); Platelet Count 126 10^3/uL (150-450); Red Cell Distribution Width 24 % (10-15); White Blood Count 33.5 10^3/uL (3.5-10.8)
[2020-07-30 08:04] LABS: ABS Basophils 1.9 10^3/ul (0-0.2); ABS Eosinophils 1.8 10^3/ul (0-0.6); ABS Lymphocytes 3.2 10^3/ul (1.0-4.8); ABS Monocytes 1.1 10^3/ul (0-0.8); ABS Neutrophils 25.6 10^3/ul (1.5-7.7); ABS Nucleated RBC 0.6 10^3/ul; Eosinophil % 5.5 %; Lymphocyte % 9.4 %; Nucleated Red Blood Cells % 1.7
[2020-07-30] MEDS: Multivitamins/Minerals TAB PO SCH (08:35)
[2020-07-30] MEDS: RUXOLITINIB 10 MG PO SCH ×2 (08:35→20:02)
[2020-07-30] MEDS: Cholecalciferol (VIT D3) 1,000 unit TAB PO SCH (08:35)
[2020-07-30] MEDS: Enoxaparin 40 MG/0.4 ML SYR SUBCUT SCH (22:05)
[2020-07-30] MEDS: cefTRIAXone 1 gm/50 mL NS BAG 1 GM/50 ML BAG IVPB SCH (22:05)
[2020-07-31 06:29] LABS: Hematocrit 24 % (35-47); Hemoglobin 7.8 g/dL (12.0-16.0); Mean Corpuscular HGB Conc 33 g/dL (31-36); Mean Corpuscular Hemoglobin 31 pg (27-31); Mean Corpuscular Volume 96 fL (80-97); Mean Platelet Volume 8.3 fL (7.4-10.4); Platelet Count 129 10^3/uL (150-450); Red Blood Count 2.49 10^6 /uL (3.70-4.87); Red Cell Distribution Width 24 % (10-15); White Blood Count 41.1 10^3/uL (3.5-10.8)
[2020-07-31 09:52] LABS: ABS Basophils 2.1 10^3/ul (0-0.2); ABS Eosinophils 1.7 10^3/ul (0-0.6); ABS Lymphocytes 4.3 10^3/ul (1.0-4.8); ABS Monocytes 1.4 10^3/ul (0-0.8); ABS Neutrophils 31.5 10^3/ul (1.5-7.7); ABS Nucleated RBC 0.5 10^3/ul; Eosinophil % 4.2 %; Lymphocyte % 10.5 %; Nucleated Red Blood Cells % 1.1
[2020-07-31] MEDS: Cholecalciferol (VIT D3) 1,000 unit TAB PO SCH (10:11)
[2020-07-31] MEDS: Multivitamins/Minerals TAB PO SCH (10:11)
[2020-07-31] MEDS: RUXOLITINIB 10 MG PO SCH ×2 (10:13→20:50)
[2020-07-31] MEDS: Mometasone/Formoter 200/5 MDI INH SCH ×2 (13:18→19:00)
[2020-07-31] MEDS ORDERED: Furosemide 20 mg/2 ml IV VIAL IV ONE (14:34)
[2020-07-31] MEDS ORDERED: Dextrose 50% Syringe 50 ml 25 GM/50 ML SYRINGE IV PUSH PRN (14:46)
[2020-07-31] MEDS: Enoxaparin 40 MG/0.4 ML SYR SUBCUT SCH (20:58)
[2020-07-31] MEDS: cefTRIAXone 1 gm/50 mL NS BAG 1 GM/50 ML BAG IVPB SCH (22:22)
[2020-08-01] MEDS: Cholecalciferol (VIT D3) 1,000 unit TAB PO SCH (08:30)
[2020-08-01] MEDS: RUXOLITINIB 10 MG PO SCH ×2 (08:31→21:41)
[2020-08-01] MEDS: Multivitamins/Minerals TAB PO SCH (08:31)
[2020-08-01] MEDS: Mometasone/Formoter 200/5 MDI INH SCH ×2 (08:52→19:11)
[2020-08-01] MEDS: Enoxaparin 40 MG/0.4 ML SYR SUBCUT SCH (21:35)
[2020-08-01] MEDS: cefTRIAXone 1 gm/50 mL NS BAG 1 GM/50 ML BAG IVPB SCH (23:55)
[2020-08-02] MEDS ORDERED: Metoprolol Tartrate 5 mg VIAL 5 ml VIAL (1 mg/ml) IV PRN (05:05)
[2020-08-02] MEDS ORDERED: Magnesium Sulfate IV 1GM/100ML 1 GM/100 ML BAG IV ONE (05:06)
[2020-08-02 05:40] LABS: BUN/Creatinine Ratio 28.6 (8-20); Calcium 8.7 mg/dL (8.6-10.3); EGFR Non-African American 79.3 (>60); Potassium 3.4 mmol/L (3.5-5.0)
[2020-08-02] MEDS ORDERED: Iodixanol (CONTRAST) 320 MG/ML 100 ML SDV IV ONE (06:11)
[2020-08-02] MEDS: RUXOLITINIB 10 MG PO SCH ×2 (08:29→20:10)
[2020-08-02] MEDS: Multivitamins/Minerals TAB PO SCH (08:29)
[2020-08-02] MEDS: Cholecalciferol (VIT D3) 1,000 unit TAB PO SCH (08:29)
[2020-08-02] MEDS: Potassium Chlor 20 meq TAB.ER PO SCH ×2 (08:29→14:11)
[2020-08-02 08:37] LABS: Troponin I 1.55 ng/mL (<0.03)
[2020-08-02] MEDS ORDERED: Furosemide 20 mg/2 ml IV VIAL IV SLOW PU ONE (09:10)
[2020-08-02 10:39] LABS: ABS Basophils 1.9 10^3/ul (0-0.2); ABS Eosinophils 1.6 10^3/ul (0-0.6); ABS Lymphocytes 5.4 10^3/ul (1.0-4.8); ABS Monocytes 1.9 10^3/ul (0-0.8); ABS Neutrophils 32.5 10^3/ul (1.5-7.7); Eosinophil % 3.7 %; Hematocrit 23 % (35-47); Hemoglobin 7.3 g/dL (12.0-16.0); Lymphocyte % 12.4 %; Mean Corpuscular HGB Conc 32 g/dL (31-36); Mean Corpuscular Hemoglobin 31 pg (27-31); Mean Corpuscular Volume 97 fL (80-97); Mean Platelet Volume 8.5 fL (7.4-10.4); Nucleated Red Blood Cells % 2.3; Platelet Count 125 10^3/uL (150-450); Red Blood Count 2.39 10^6 /uL (3.70-4.87); Red Cell Distribution Width 23 % (10-15); White Blood Count 43.3 10^3/uL (3.5-10.8)
[2020-08-02 11:00] LABS: ALT 29 U/L (7-52); AST 57 U/L (13-39); Albumin 3.4 g/dL (3.2-5.2); Albumin/Globulin Ratio 1.4 (1-3); Alkaline Phosphatase 87 U/L (34-104); Anion Gap 5 mmol/L (2-11); Blood Urea Nitrogen 19 mg/dL (6-24); C Reactive Protein 196.44 mg/L (<8.01); CO2 Carbon Dioxide 31 mmol/L (22-32); Calcium 8.8 mg/dL (8.6-10.3); Chloride 106 mmol/L (101-111); EGFR African American 91.5 (>60); EGFR Non-African American 75.6 (>60); Globulin 2.5 g/dL (2-4); Glucose 222 mg/dL (70-100); Potassium 3.8 mmol/L (3.5-5.0); Sodium 142 mmol/L (135-145); Total Protein 5.9 g/dL (6.4-8.9)
[2020-08-02 11:04] LABS: Troponin I 1.75 ng/mL (<0.03)
[2020-08-02 14:59] LABS: Troponin I 1.77 ng/mL (<0.03)
[2020-08-02] MEDS: Enoxaparin 40 MG/0.4 ML SYR SUBCUT SCH (20:09)
[2020-08-02] MEDS: cefTRIAXone 1 gm/50 mL NS BAG 1 GM/50 ML BAG IVPB SCH (20:11)
[2020-08-03 06:30] LABS: BUN/Creatinine Ratio 34.4 (8-20); C Reactive Protein 208.43 mg/L (<8.01); Calcium 8.4 mg/dL (8.6-10.3); EGFR African American 106.5 (>60); Potassium 4.3 mmol/L (3.5-5.0)
[2020-08-03] MEDS ORDERED: Furosemide 40 mg/4 ml IV VIAL IV SLOW PU ONE (07:48)
[2020-08-03] MEDS: Cholecalciferol (VIT D3) 1,000 unit TAB PO SCH (08:09)
[2020-08-03] MEDS: Multivitamins/Minerals TAB PO SCH (08:09)
[2020-08-03] MEDS: RUXOLITINIB 10 MG PO SCH ×2 (08:11→20:48)
[2020-08-03 08:23] LABS: Hematocrit 30 % (35-47); Hemoglobin 9.6 g/dL (12.0-16.0)
[2020-08-03] MEDS: Enoxaparin 40 MG/0.4 ML SYR SUBCUT SCH (20:48)
[2020-08-03] MEDS: cefTRIAXone 1 gm/50 mL NS BAG 1 GM/50 ML BAG IVPB SCH (20:48)
[2020-08-04] MEDS: Cholecalciferol (VIT D3) 1,000 unit TAB PO SCH (09:00)
[2020-08-04] MEDS: Multivitamins/Minerals TAB PO SCH (09:00)
[2020-08-04] MEDS: RUXOLITINIB 10 MG PO SCH ×2 (09:01→21:03)
[2020-08-04] MEDS: Enoxaparin 40 MG/0.4 ML SYR SUBCUT SCH (21:06)
[2020-08-05 07:08] LABS: Hematocrit 29 % (35-47); Hemoglobin 9.4 g/dL (12.0-16.0); Mean Corpuscular HGB Conc 33 g/dL (31-36); Mean Corpuscular Hemoglobin 32 pg (27-31); Mean Corpuscular Volume 97 fL (80-97); Mean Platelet Volume 8.4 fL (7.4-10.4); Platelet Count 162 10^3/uL (150-450); Red Blood Count 2.99 10^6 /uL (3.70-4.87); Red Cell Distribution Width 22 % (10-15); White Blood Count 63.9 10^3/uL (3.5-10.8)
[2020-08-05] MEDS: Multivitamins/Minerals TAB PO SCH (08:05)
[2020-08-05] MEDS: Cholecalciferol (VIT D3) 1,000 unit TAB PO SCH (08:05)
[2020-08-05] MEDS: RUXOLITINIB 10 MG PO SCH (08:07)
[2020-08-05 08:45] LABS: ABS Basophils 2.3 10^3/ul (0-0.2); ABS Eosinophils 3.9 10^3/ul (0-0.6); ABS Lymphocytes 7.9 10^3/ul (1.0-4.8); ABS Monocytes 2.7 10^3/ul (0-0.8); ABS Neutrophils 47.2 10^3/ul (1.5-7.7); ABS Nucleated RBC 3.8 10^3/ul; Eosinophil % 6.1 %; Lymphocyte % 12.4 %
[2020-08-05 09:32] VITALS: BP 140/72
== END 2020-08-05 13:00 ==
LOC: ED 16:09 → MED 16:09 → MEDTELE 08-02 08:52
PROVIDERS: ADMIT Physician Assistant; ATTEND Student in an Organized Health Care Education/Training Program

== ENCOUNTER 2020-10-22 01:15 | Inpatient (IN) ==
[~2020-10-22 01:15] MED LIST: Dexamethasone IV 4 MG/ML VIAL 1 ml VIAL IV SLOW PU SCH; EPHEDrine (Pressors) 50 MG/ML VIAL IV SLOW PU SCH; Lidocaine 2% PF 5 ML VIAL INJ SCH; Ondansetron 4 mg VIAL 2 MG/ML 2 ml VIAL IV SCH; Phenylephrine 40 mcg/mL 10mL (400mcg) SYRINGE IV SCH; Propofol 10 MG/ML 20 ML BTL IV SCH; fentaNYL 100 mcg/2 ml 50 MCG/ML VIAL IV SCH
[2020-10-22] MEDS ORDERED: Morphine 4 MG/ML VIAL (1 ml) IV ONE ×2 (01:47→02:55)
[2020-10-22] MEDS ORDERED: Morphine 4 MG/ML VIAL (1 ml) ONE (02:58)
[2020-10-22 03:11] LABS: Hematocrit 30 % (35-47); Hemoglobin 9.6 g/dL (12.0-16.0); Mean Corpuscular HGB Conc 32 g/dL (31-36); Mean Corpuscular Hemoglobin 32 pg (27-31); Mean Corpuscular Volume 100 fL (80-97); Mean Platelet Volume 8.1 fL (7.4-10.4); Platelet Count 151 10^3/uL (150-450); Red Blood Count 2.99 10^6 /uL (3.70-4.87); Red Cell Distribution Width 24 % (10-15); White Blood Count 59.7 10^3/uL (3.5-10.8)
[2020-10-22 03:29] LABS: Activated Partial Thrombo Time 28.1 seconds (26.0-38.0); INR 1.03 (0.82-1.09)
[2020-10-22 03:55] LABS: ABS Lymphocytes 7.6 10^3/ul (1.0-4.8); ABS Monocytes 2.7 10^3/ul (0-0.8); ABS Neutrophils 44.4 10^3/ul (1.5-7.7); ABS Nucleated RBC 2.4 10^3/ul; Eosinophil % 5.1 %; Lymphocyte % 12.7 %; Polychromasia 1+
[2020-10-22 04:48] LABS: Albumin 3.9 g/dL (3.2-5.2); Albumin/Globulin Ratio 1.6 (1-3); BUN/Creatinine Ratio 33.7 (8-20); Calcium 8.7 mg/dL (8.6-10.3); EGFR African American 62.9 (>60); Globulin 2.5 g/dL (2-4); Potassium 4.4 mmol/L (3.5-5.0); Total Bilirubin 0.4 mg/dL (0.2-1.0); Total Protein 6.4 g/dL (6.4-8.9)
[2020-10-22 04:49] LABS: Troponin I 0.01 ng/mL (<0.03)
[2020-10-22] MEDS ORDERED: Ondansetron 4 mg VIAL 2 MG/ML 2 ml VIAL IV PRN (05:04)
[2020-10-22] MEDS ORDERED: NS 0.9% 1000 ml BAG 1,000 ML IV SCH ×2 (05:15→18:27)
[2020-10-22] MEDS ORDERED: Dextrose 50% Syringe 50 ml 25 GM/50 ML SYRINGE IV PUSH PRN (05:15)
[2020-10-22] MEDS ORDERED: Albuterol 2.5mg/3 ml (0.083%) NEB.SOLN INH PRN (05:18)
[2020-10-22] MEDS: Heparin 5000 UNITS/ML 1 mL VIAL SUBCUT SCH ×2 (08:56→14:33)
[2020-10-22] MEDS: Morphine 2 MG/ML SYRINGE IV PRN (09:01)
[2020-10-22] MEDS: RUXOLITINIB 10 MG PO SCH ×2 (10:57→20:44)
[2020-10-22] MEDS ORDERED: ceFAZolin 2 GM PREMIX 2 GM/50 ML BAG ONE (12:05)
[2020-10-22] MEDS ORDERED: Bupivacaine 0.25% SDV 30 ML ONE (12:10)
[2020-10-22 12:26] LABS: Urine Appearance Turbid; Urine Bacteria Absent (Absent); Urine Bilirubin Negative (Negative); Urine Blood Negative (Negative); Urine Color Amber; Urine Glucose Negative (Negative); Urine Ketones Trace (Negative); Urine Nitrite Negative (Negative); Urine Protein 2+(100 mg/dL) (Negative); Urine Red Blood Cell 1+(3-5/hpf) (Absent); Urine Specific Gravity 1.023 (1.010-1.030); Urine Squamous Epithelial Cell Present (Absent); Urine Urobilinogen Negative (Negative); Urine White Blood Cell 3+(>20/hpf) (Absent)
[2020-10-22] MEDS ORDERED: Naloxone 0.4 mg VIAL 0.4 mg/ml 1 ml VIAL IV PRN (14:47)
[2020-10-22] MEDS ORDERED: NS 0.9% 500 ml BAG 500 ML IV ONE ×3 (18:26→18:36)
[2020-10-22] MEDS ORDERED: cefTRIAXone 1 gm/50 mL NS BAG 1 GM/50 ML BAG IVPB SCH (21:00)
[2020-10-23 03:13] VITALS: BP 114/50
[2020-10-23] MEDS: Morphine 2 MG/ML SYRINGE IV PRN (03:56)
[2020-10-23] MEDS ORDERED: Enoxaparin 40 MG/0.4 ML SYR SUBCUT SCH (12:00)
== END 2020-10-23 07:03 | disposition expired | DRG 481 ==
LOC: ED 01:15 → MED 05:48
PROVIDERS: ADMIT Internal Medicine; ATTEND Internal Medicine